=== PATIENT | male | born 1955 | race African-American/Black ===

== ENCOUNTER 2018-03-22 16:21 | Observation (INO) | payer MEDICAID ==
--- OUTSIDE RECORDS SUMMARY | 2018-03-22 16:23 | XMS REPORT ---
:1955 Author Organization eClinicalWorks Care Team Providers Name Role Phone Rebolledo, Sharmaine Provider Role Unavailable Allergies, Adverse Reactions, Alerts Substance Reaction Event Type N.K.D.A. Info Not Available Non Drug Allergy Problems Problem Type Condition Code Onset Dates Condition Status Assessment Other chronic pain G89.29 Active Assessment Chronic obstructive bronchitis J44.9 Active without exacerbation Assessment Low back pain M54.5 Active Problem Chronic obstructive bronchitis J44.9 Active without exacerbation Problem Essential hypertension I10 Active Problem Prostate ca C61 Active Assessment Essential hypertension I10 Active Problem Low back pain M54.5 Active Problem Other chronic pain G89.29 Active Medications Medication Code Code Instructions Start End Status Dosage System Date Date Gabapentin [facility] [id number] 300 MG Orally Active 1 capsule daily every 8 hours Symbicort [facility] [id number] 160-4.5 MCG/ACT Active 2 puffs Inhalation Twice a day Combivent [facility] [id number] 20-100 MCG/ACT Active 1 puff Respimat Inhalation Four times a day Zestoretic [facility] [id number] 12.5-10 MG Active 1 tablet Orally Once a day Results No Known Results Summary Purpose eClinicalWorks Submission
--- OUTSIDE RECORDS SUMMARY | 2018-03-22 16:23 | XMS REPORT ---
:1955 Author Organization [employer] Care Team Providers Name Role Phone Rebolledo, Na Provider Role Unavailable Allergies No Known Allergies Problems Problem Type Condition Code Onset Dates Condition Status Problem Chronic obstructive bronchitis J44.9 Active without exacerbation Problem Essential hypertension I10 Active Problem Prostate ca C61 Active Problem Low back pain M54.5 Active Problem Other chronic pain G89.29 Active Medications No Known Medications Results No Known Results Summary Purpose eClinicalWorks Submission
[2018-03-22] MEDS ORDERED: ASPIRIN 81 MG CHEWABLE TABLET ONE (17:06)
[2018-03-22] MEDS ORDERED: ONDANSETRON 4 MG/2 ML VIAL ONE (17:07)
[2018-03-22] MEDS ORDERED: MORPHINE 4 MG/ML SYR ONE (17:07)
[2018-03-22] MEDS ORDERED: FAMOTIDINE 20 MG/2 ML VIAL IV ONE (17:07)
[2018-03-22] MEDS ORDERED: METOPROLOL TAR 50 MG TAB ONE (17:07)
[2018-03-22 17:12] LABS: Absolute Lymphocytes (CBC) 1.8 K/uL (0.7-4.9); Absolute Monocytes 0.8 K/uL (0.1-1.3); Absolute Neutrophil 2.7 K/uL (1.8-8.0); Basophils % 0.7 % (0-1.3); Eosinophils % 1.5 % (0-4.4); Hematocrit 35.9 % (39.6-49.0); Lymphocytes % 33.7 % (15.3-44.8); MCH 28.5 pg (27.0-35.0); MCV 84.3 fL (80-100); MPV 9.4 fL (7.6-11.3); Monocytes % 14.1 % (3.3-12.3); RBC Red Blood Cell Count 4.26 M/uL (4.33-5.43)
[2018-03-22 17:15] LABS: Protime INR 0.99
--- NOTE | 2018-03-22 17:15 | RAD REPORT ---
EXAM DESCRIPTION: RAD - Chest Single View - 03/22/2018 5:09 pm CLINICAL HISTORY: CHEST PAIN Chest pain. COMPARISON: Chest Pa And Lat (2 Views) dated 03/08/2017; Chest Single View dated 01/25/2017; Chest Pa And Lat (2 Views) dated 09/25/2016; CHEST SINGLE VIEW dated 03/17/2015 FINDINGS: Portable technique limits examination quality. Mild interstitial pulmonary edema seen. The heart is upper limit normal size. No displaced fractures. IMPRESSION: Mild CHF/ volume overload pattern.
[2018-03-22 17:28] LABS: ALT/SGPT 19 U/L (12-78); AST/SGOT 29 U/L (15-37); Albumin 3.6 g/dL (3.4-5.0); Alkaline Phosphatase 85 U/L (45-117); BUN Blood Urea Nitrogen 28 mg/dL (7-18); Bicarbonate 26 mmol/L (21-32); Bilirubin Direct < 0.1 mg/dL (0-0.2); Bilirubin Total 0.2 mg/dL (0.2-1.0); CKMB Creatine Kinase MB 7.3 ng/mL (0.3-3.6); Creatine Phosphokinase 402 U/L (39-308); Glucose Level 117 mg/dL (74-106); Magnesium 2.1 mg/dL (1.8-2.4); NT PRO-BNP 240 pg/mL (<125); Protein, Total 7.7 g/dL (6.4-8.2); Sodium Level 138 mmol/L (136-145); Troponin (Emerg Dept Use Only) 0.04 ng/mL (0.0-0.045)
--- NOTE | 2018-03-22 17:49 | EDPHYS ---
Physician Documentation [facility] Name: Guido Allan Age: 62 yrs Sex: Male : 1955 Arrival Date: 03/22/2018 Time: 16:22 Bed 27 Private MD: Sharmaine Rebolledo ED Physician Kendrick Mckeon HPI: 03/22 16:57 This 62 yrs old Black Male presents to ER via Ambulatory with complaints of Chest Pain. [facility] 16:57 The patient or guardian reports chest pain that is located primarily in the substernal sinan area, anterior chest wall, left. Onset: 3 day(s) ago. The pain radiates to the left arm. Associated signs and symptoms: The patient has no apparent associated signs or symptoms. The chest pain is described as a heaviness, causing indigestion, a pressure. Modifying factors: The symptoms are alleviated by nothing. the symptoms are aggravated by nothing. Severity of pain: At its worst the pain was mild in the emergency department the pain is unchanged. The patient has not experienced similar symptoms in the past. Historical: - Allergies: 16:26 NKDA; hj - Home Meds: 16:26 lisinopril 20 mg Oral tab 1 tab once daily [Active]; Hormone Injection every 4 months hj for Prostate Cancer [Active]; inhaler as needed [Active]; - PMHx: 16:26 Arthritis; COPD; Hyperlipidemia; Hypertension; Prostate Cancer; hj - PSHx: 16:26 None; hj - Immunization history:: Adult Immunizations up to date. - Social history:: Smoking status: Patient uses tobacco products, smokes one pack cigarettes per day. every 3 days, Patient/guardian denies using alcohol. - Ebola Screening: : Patient negative for fever greater than or equal to 101.5 degrees Fahrenheit, and additional compatible Ebola Virus Disease symptoms Patient denies exposure to infectious person Patient denies travel to an Ebola-affected area in the 21 days before illness onset. - Family history:: not pertinent. ROS: 16:57 Constitutional: Negative for fever, chills, and weight loss, Eyes: Negative for injury, sinan pain, redness, and discharge, ENT: Negative for injury, pain, and discharge, Neck: Negative for injury, pain, and swelling, Respiratory: Negative for shortness of breath, cough, wheezing, and pleuritic chest pain, Abdomen/GI: Negative for abdominal pain, nausea, vomiting, diarrhea, and constipation, Back: Negative for injury and pain, : Negative for injury, bleeding, discharge, and swelling, MS/Extremity: Negative for injury and deformity, Skin: Negative for injury, rash, and discoloration, Neuro: Negative for headache, weakness, numbness, tingling, and seizure, Psych: Negative for depression, anxiety, suicide ideation, homicidal ideation, and hallucinations, Allergy/Immunology: Negative for hives, rash, and allergies, Endocrine: Negative for neck swelling, polydipsia, polyuria, polyphagia, and marked weight changes, Hematologic/Lymphatic: Negative for swollen nodes, abnormal bleeding, and unusual bruising. 16:57 Cardiovascular: Positive for chest pain, of the chest. Exam: 16:57 Constitutional: This is a well developed, well nourished patient who is awake, alert, sinan and in no acute distress. Head/Face: Normocephalic, atraumatic. Eyes: Pupils equal round and reactive to light, extra-ocular motions intact. Lids and lashes normal. Conjunctiva and sclera are non-icteric and not injected. Cornea within normal limits. Periorbital areas with no swelling, redness, or edema. ENT: Nares patent. No nasal discharge, no septal abnormalities noted. Tympanic membranes are normal and external auditory canals are clear. Oropharynx with no redness, swelling, or masses, exudates, or evidence of obstruction, uvula midline. Mucous membranes moist. Neck: Trachea midline, no thyromegaly or masses palpated, and no cervical lymphadenopathy. Supple, full range of motion without nuchal rigidity, or vertebral point tenderness. No Meningismus. Chest/axilla: Normal chest wall appearance and motion. Nontender with no deformity. No lesions are appreciated. Cardiovascular: Regular rate and rhythm with a normal S1 and S2. No gallops, murmurs, or rubs. Normal PMI, no JVD. No pulse deficits. Respiratory: Lungs have equal breath sounds bilaterally, clear to auscultation and percussion. No rales, rhonchi or wheezes noted. No increased work of breathing, no retractions or nasal flaring. Abdomen/GI: Soft, non-tender, with normal bowel sounds. No distension or tympany. No guarding or rebound. No evidence of tenderness throughout. Back: No spinal tenderness. No costovertebral tenderness. Full range of motion. Male : Normal genitalia with no discharge or lesions. Skin: Warm, dry with normal turgor. Normal color with no rashes, no lesions, and no evidence of cellulitis. MS/ Extremity: Pulses equal, no cyanosis. Neurovascular intact. Full, normal range of motion. Neuro: Awake and alert, GCS 15, oriented to person, place, time, and situation. Cranial nerves II-XII grossly intact. Motor strength 5/5 in all extremities. Sensory grossly intact. Cerebellar exam normal. Normal gait. Psych: Awake, alert, with orientation to person, place and time. Behavior, mood, and affect are within normal limits. Vital Signs: 16:29 BP 149 / 68; Pulse 78; Resp 18; Temp 97.0(TE); Pulse Ox 100% on R/A; Weight 112.04 kg; hj Height 6 ft. 0 in. (182.88 cm); Pain 8/10; 17:15 BP 145 / 75; Pulse 72; Resp 18; Pulse Ox 99% on 2 lpm NC; tl3 18:58 BP 137 / 78; Pulse 74; Resp 18; Pulse Ox 98% on 2 lpm NC; tl3 20:19 BP 103 / 65; Pulse 62; Resp 16; Pulse Ox 99% ; tl3 16:29 Body Mass Index 33.50 (112.04 kg, 182.88 cm) MDM: 16:43 Patient medically screened. [facility] 16:59 Data reviewed: vital signs, nurses notes, lab test result(s), EKG, radiologic studies, sinan plain films. 03/22 16:42 Order name: Basic Metabolic Panel; Complete Time: 17:45 [facility] 03/22 16:42 Order name: CBC with Diff; Complete Time: 17:45 [facility] 03/22 16:42 Order name: Ckmb; Complete Time: 17:45 [facility] 03/22 16:42 Order name: CPK; Complete Time: 17:45 [facility] 03/22 16:42 Order name: LFT's; Complete Time: 17:45 [facility] 03/22 16:42 Order name: Magnesium; Complete Time: 17:45 [facility] 03/22 16:42 Order name: NT PRO-BNP; Complete Time: 17:45 [facility] 03/22 16:42 Order name: PT-INR; Complete Time: 17:45 [facility] 03/22 16:42 Order name: Ptt, Activated; Complete Time: 17:45 [facility] 03/22 16:42 Order name: Troponin (emerg Dept Use Only); Complete Time: 17:45 [facility] 03/22 16:56 Order name: D-Dimer; Complete Time: 17:45 [facility] 03/22 18:27 Order name: CBC with Automated Diff [facility] 03/22 18:27 Order name: CBC with Automated Diff [facility] 03/22 18:27 Order name: Comprehensive Metabolic Panel [facility] 03/22 16:31 Order name: EKG; Complete Time: 16:32 03/22 16:42 Order name: XRAY Chest (1 view); Complete Time: 17:45 [facility] 03/22 17:49 Order name: CT Chest For PE Angio; Complete Time: 18:28 [facility] 03/22 17:54 Order name: Echo with Doppler [facility] 03/22 18:27 Order name: Comprehensive Metabolic Panel [facility] 03/22 18:27 Order name: Troponin I [facility] 03/22 18:27 Order name: Troponin I [facility] 03/22 18:27 Order name: Troponin I [facility] 03/22 18:27 Order name: Urine Dipstick--Ancillary (enter results) 03/22 16:31 Order name: EKG - Nurse/Tech; Complete Time: 16:31 03/22 16:42 Order name: Cardiac monitoring; Complete Time: 17:13 [facility] 03/22 16:42 Order name: IV Saline Lock; Complete Time: 17:13 [facility] 03/22 16:42 Order name: Labs collected and sent; Complete Time: 17:13 [facility] 03/22 16:42 Order name: O2 Per Protocol; Complete Time: 17:13 [facility] 03/22 16:42 Order name: O2 Sat Monitoring; Complete Time: 17:13 [facility] 03/22 16:42 Order name: Urine Dipstick-Ancillary (obtain specimen); Complete Time: 17:13 [facility] 03/22 17:54 Order name: CONS Physician Consult [facility] 03/22 18:27 Order name: Heart Healthy EDIN Administered Medications: 17:13 Drug: Aspirin Chewable Tablet 324 mg Route: PO; tl3 19:09 Follow up: Response: No adverse reaction tl3 17:14 Drug: morphine 4 mg Route: IVP; Infused Over: 3 mins; Site: right wrist; tl3 19:08 Follow up: Response: No adverse reaction; Pain is decreased tl3 17:14 Drug: Zofran 4 mg Route: IVP; Infused Over: 2 mins; Site: right wrist; tl3 19:08 Follow up: Response: No adverse reaction tl3 17:15 Drug: Lopressor (metoprolol TARTRATE) 50 mg Route: PO; tl3 19:08 Follow up: Response: Blood pressure is lowered tl3 17:15 Drug: Pepcid 20 mg Route: IVP; Site: right wrist; tl3 19:08 Follow up: Response: No adverse reaction tl3 19:12 Drug: Lasix 20 mg Route: IVP; Infused Over: 2 mins; Site: right wrist; tl3 21:42 Follow up: Response: No adverse reaction tl3 21:21 Drug: Lovenox 1 mg/kg Route: Sub-Q; Site: abdomen; tl3 Disposition: 03/22/18 17:48 Hospitalization ordered by Herman Mast for Observation. Preliminary diagnosis are Chest pain, unspecified, Dyspnea, Chronic obstructive pulmonary disease, unspecified, Essential (primary) hypertension. - Bed requested for Telemetry/MedSurg (observation). - Status is Observation. tl3 - Condition is Fair. - Problem is new. - Symptoms have improved. UTI on Admission? No Signatures: Dispatcher [employer] EDKendrick Spencer MD MD cha Solis, Maria ms LugoPranay, RN RN Juli Ozuna RN RN tl3 Corrections: (The following items were deleted from the chart) 20:59 17:48 Hospitalization Ordered by Herman Mast MD for Observation. Preliminary diagnosis ms is Chest pain, unspecified; Dyspnea; Chronic obstructive pulmonary disease, unspecified; Essential (primary) hypertension. Bed requested for Telemetry/MedSurg (observation). Status is Observation. Condition is Fair. Problem is new. Symptoms have improved. UTI on Admission? No. sinan 21:43 20:59 03/22/2018 17:48 Hospitalization Ordered by Herman Mast MD for Observation. tl3 Preliminary diagnosis is Chest pain, unspecified; Dyspnea; Chronic obstructive pulmonary disease, unspecified; Essential (primary) hypertension. Bed requested for Telemetry/MedSurg (observation). Status is Observation. Condition is Fair. Problem is new. Symptoms have improved. UTI on Admission? No. ms
--- NOTE | 2018-03-22 17:49 | ER ---
Nurse's Notes [facility] Name: Guido Allan Age: 62 yrs Sex: Male : 1955 Arrival Date: 03/22/2018 Time: 16:22 Bed 27 Private MD: Sharmaine Rebolledo Diagnosis: Chest pain, unspecified;Dyspnea;Chronic obstructive pulmonary disease, unspecified;Essential (primary) hypertension Presentation: 03/22 16:24 Presenting complaint: Patient states: about 3 days ago, i started having chest pain and hj the pain moves to the arms and my head hurts; reports SOB; reports nausea; current pain level is 7/10;. Transition of care: patient was not received from another setting of care. Onset of symptoms was March 22, 2018. Risk Assessment: Do you want to hurt yourself or someone else? Patient reports no desire to harm self or others. Initial Sepsis Screen: Does the patient meet any 2 criteria? No. Patient's initial sepsis screen is negative. Does the patient have a suspected source of infection? No. Patient's initial sepsis screen is negative. Care prior to arrival: None. 16:24 Method Of Arrival: Ambulatory 16:24 Acuity: ALANA 3 hj Triage Assessment: 16:27 General: Appears in no apparent distress. uncomfortable, Behavior is calm, cooperative, hj appropriate for age. Pain: Complains of pain in chest Pain radiates to left arm Pain currently is 8 out of 10 on a pain scale. Cardiovascular: Capillary refill < 3 seconds Patient's skin is warm and dry. Historical: - Allergies: 16:26 NKDA; hj - Home Meds: 16:26 lisinopril 20 mg Oral tab 1 tab once daily [Active]; Hormone Injection every 4 months hj for Prostate Cancer [Active]; inhaler as needed [Active]; - PMHx: 16:26 Arthritis; COPD; Hyperlipidemia; Hypertension; Prostate Cancer; hj - PSHx: 16:26 None; hj - Immunization history:: Adult Immunizations up to date. - Social history:: Smoking status: Patient uses tobacco products, smokes one pack cigarettes per day. every 3 days, Patient/guardian denies using alcohol. - Ebola Screening: : Patient negative for fever greater than or equal to 101.5 degrees Fahrenheit, and additional compatible Ebola Virus Disease symptoms Patient denies exposure to infectious person Patient denies travel to an Ebola-affected area in the 21 days before illness onset. - Family history:: not pertinent. Screenin:28 Abuse screen: Denies threats or abuse. Denies injuries from another. Nutritional hj screening: No deficits noted. Tuberculosis screening: No symptoms or risk factors identified. Fall Risk None identified. Assessment: 16:29 Pain: Pain began 2-3 days ago. hj 16:51 General: Appears distressed, uncomfortable, well groomed, well developed, well tl3 nourished, Behavior is cooperative, appropriate for age, anxious. Pain: Complains of pain in left arm and chest. Neuro: Level of Consciousness is awake, alert, obeys commands, Oriented to person, place, time, situation, Appropriate for age. Cardiovascular: Reports chest pain, shortness of breath, headache Patient's skin is warm and dry. Respiratory: Airway is patent Respiratory effort is even, labored, Respiratory pattern is regular, symmetrical, Breath sounds are clear bilaterally. GI: No signs and/or symptoms were reported involving the gastrointestinal system. : No signs and/or symptoms were reported regarding the genitourinary system. EENT: No signs and/or symptoms were reported regarding the EENT system. Derm: No signs and/or symptoms reported regarding the dermatologic system. 16:51 Cardiovascular: Reports since pain started three days ago, resting made it better tl3 initally, but then it didn't matter whether he was still or moving there was pain. 18:16 Reassessment: No changes from previously documented assessment. Patient and/or family tl3 updated on plan of care and expected duration. Pain level reassessed. Patient is alert, oriented x 3, equal unlabored respirations, skin warm/dry/pink. 18:58 Reassessment: Patient appears in no apparent distress at this time. No changes from tl3 previously documented assessment. Patient and/or family updated on plan of care and expected duration. Pain level reassessed. Patient is alert, oriented x 3, equal unlabored respirations, skin warm/dry/pink. 20:19 Reassessment: Patient appears in no apparent distress at this time. No changes from tl3 previously documented assessment. Patient and/or family updated on plan of care and expected duration. Pain level reassessed. Patient is alert, oriented x 3, equal unlabored respirations, skin warm/dry/pink. Vital Signs: 16:29 BP 149 / 68; Pulse 78; Resp 18; Temp 97.0(TE); Pulse Ox 100% on R/A; Weight 112.04 kg; hj Height 6 ft. 0 in. (182.88 cm); Pain 8/10; 17:15 BP 145 / 75; Pulse 72; Resp 18; Pulse Ox 99% on 2 lpm NC; tl3 18:58 BP 137 / 78; Pulse 74; Resp 18; Pulse Ox 98% on 2 lpm NC; tl3 20:19 BP 103 / 65; Pulse 62; Resp 16; Pulse Ox 99% ; tl3 16:29 Body Mass Index 33.50 (112.04 kg, 182.88 cm) hj ED Course: 16:22 Patient arrived in ED. rg4 16:23 Sharmaine Rebolledo MD is Private Physician. rg4 16:25 Triage completed. hj 16:29 Arm band placed on right wrist. hj 16:29 Patient has correct armband on for positive identification. Placed in gown. Bed in low hj position. Call light in reach. Side rails up X 1. 16:29 ekg monitor tech on. Pulse ox on. NIBP on. hj 16:29 Patient maintains SpO2 saturation greater than 95% on room air. hj 16:30 Inserted saline lock: 20 gauge in right wrist, using aseptic technique. Blood collected.tl3 16:31 EKG done, by technical customer support specialist. reviewed by Kendrick Mckeon MD. sm3 16:33 Kendrick Mckeon MD is Attending Physician. sinan 16:51 Juli Rodriguez, CECILIA is Primary Nurse. tl3 17:08 X-ray completed. Portable x-ray completed in exam room. Patient tolerated procedure az well. 17:09 XRAY Chest (1 view) In Process Unspecified. EDMS 17:47 Herman Mast MD is Hospitalizing Provider. sinan 18:[address] vr 18:05 CT completed. Patient tolerated procedure well. Patient moved back from CT. vr 18:05 CT Chest For PE Angio In Process Unspecified. EDMS 20:27 Door closed. Pillow given. Diet tray given. tl3 20:27 No provider procedures requiring assistance completed. tl3 Administered Medications: 17:13 Drug: Aspirin Chewable Tablet 324 mg Route: PO; tl3 19:09 Follow up: Response: No adverse reaction tl3 17:14 Drug: morphine 4 mg Route: IVP; Infused Over: 3 mins; Site: right wrist; tl3 19:08 Follow up: Response: No adverse reaction; Pain is decreased tl3 17:14 Drug: Zofran 4 mg Route: IVP; Infused Over: 2 mins; Site: right wrist; tl3 19:08 Follow up: Response: No adverse reaction tl3 17:15 Drug: Lopressor (metoprolol TARTRATE) 50 mg Route: PO; tl3 19:08 Follow up: Response: Blood pressure is lowered tl3 17:15 Drug: Pepcid 20 mg Route: IVP; Site: right wrist; tl3 19:08 Follow up: Response: No adverse reaction tl3 19:12 Drug: Lasix 20 mg Route: IVP; Infused Over: 2 mins; Site: right wrist; tl3 21:42 Follow up: Response: No adverse reaction tl3 21:21 Drug: Lovenox 1 mg/kg Route: Sub-Q; Site: abdomen; tl3 Output: 20:27 Urine: 1200ml (Voided); Total: 1200ml. tl3 Outcome: 17:48 Decision to Hospitalize by Provider. [facility] 21:43 Patient left the ED. tl3 Signatures: Dispatcher [employer] EDMS Kendrick Mckeon MD MD cha Davis, Victoria vr Joaquin, Henry, RN Beth Painter 4 Juli Rodriguez RN RN tl3 Kerline Rea 3 Taylor Leo ga Corrections: (The following items were deleted from the chart) 16:31 16:29 Pulse 78bpm; Resp 18bpm; Pulse Ox 100% RA; Temp 97.0F Temporal; 112.04 kg; Height hj 6 ft. 0 in.; BMI: 33.5; Pain 8/10; hj
--- NOTE | 2018-03-22 18:17 | RAD REPORT ---
EXAM DESCRIPTION: CT - Chest For Pe Angio - 03/22/2018 6:05 pm CLINICAL HISTORY: Chest pain and shortness of breath COMPARISON: None. TECHNIQUE: Dynamically enhanced axial 3 mm thick images of the chest were obtained during administra tion of <100> mL Isovue 370 IV contrast. Coronal and oblique reconstruction images were generated and reviewed. Exam utilizes a protocol for optimal evaluation of pulmonary arterial tree. Maximum intensity projections 3D imaging was utilized All CT scans are performed using dose optimization technique as appropriate and may include automated exposure control or mA/KV adjustment according to patient size. FINDINGS: A pulmonary embolus is not seen. A thoracic aortic aneurysm is not noted. A pleural effusion is not seen. A pericardial effusion is not seen. A lung consolidation is not present. IMPRESSION: Negative for a pulmonary embolism.
[2018-03-22] MEDS ORDERED: ONDANSETRON 4 MG/2 ML VIAL IV PRN (18:23)
[2018-03-22] MEDS ORDERED: ACETAMINOPHEN 500 MG TAB PO PRN (18:23)
[2018-03-22] MEDS: ENOXAPARIN 40 MG/0.4 ML SQ SCH (19:00)
[2018-03-22] MEDS ORDERED: ASPIRIN EC 81 MG TAB PO SCH (19:00)
[2018-03-22] MEDS ORDERED: FUROSEMIDE 20 MG/ 2ML VIAL ONE (19:16)
[2018-03-22 19:32] LABS: Urine Blood NEGATIVE (NEG); Urine Glucose NEGATIVE (NEG); Urine Protein NEGATIVE (NEG); Urine Specific Gravity 1.025 (1.005-1.030)
[2018-03-22] MEDS ORDERED: ENOXAPARIN 100 MG/ML SYR SQ ONE (21:29)
[2018-03-22] MEDS: METOPROLOL TAR 50 MG TAB PO SCH (22:24)
[2018-03-22 22:49] VITALS: BMI 33.5
[2018-03-23 00:14] VITALS: O2SAT 98
[2018-03-23 03:09] LABS: Absolute Lymphocytes (CBC) 1.8 K/uL (0.7-4.9); Absolute Monocytes 0.7 K/uL (0.1-1.3); Absolute Neutrophil 1.6 K/uL (1.8-8.0); Basophils % 0.9 % (0-1.3); Eosinophils % 2.3 % (0-4.4); Hematocrit 35.5 % (39.6-49.0); Lymphocytes % 42.9 % (15.3-44.8); MCH 28.7 pg (27.0-35.0); MCV 83.4 fL (80-100); MPV 9.3 fL (7.6-11.3); Monocytes % 16.7 % (3.3-12.3); RBC Red Blood Cell Count 4.26 M/uL (4.33-5.43)
[2018-03-23 03:34] LABS: Albumin 3.6 g/dL (3.4-5.0); Bilirubin Total 0.2 mg/dL (0.2-1.0); Protein, Total 7.5 g/dL (6.4-8.2)
[2018-03-23 04:50] LABS: Blood Morphology Comment NOT SEEN (NOT SEEN); Platelet Estimate ADEQ
--- NOTE | 2018-03-23 06:18 | P.HP ---
Certification for Inpatient Patient admitted to: Observation With expected LOS: <2 Midnights Patient will require the following post-hospital care: None Practitioner: I am a practitioner with admitting privileges, knowledge of patient current condition, hospital course, and medical plan of care. Services: Services provided to patient in accordance with Admission requirements found in Title 42 Section 412.3 of the Code of Federal Regulations Patient History Date of Service: 03/22/18 Reason for admission: Chest pain to the anterior chest wall History of Present Illness: Patient is a 62-year-old gentleman who came into the hospital with chest discomfort. Pain was in the anterior chest wall which started about 3 days ago. The chest pain has been waxing and waning for the last few days. However yesterday the chest pain became more severe. The pain radiated down his left arm. He had some dyspnea and described the symptoms as heaviness or pressure. Patient has numerous risk factors including having a history of hypertension and dyslipidemia and he is also smoker. At this time, will rule about for acute coronary syndrome. Will do serial troponins and EKGs. Will also do an echocardiogram and possible stress test in the a.m.. Patient's chest pain has resolved at this time. Allergies No Known Drug Allergies Allergy (Verified 03/02/16 08:11) Unknown Home Medications: Hydrocodone 10/APAP 325 [Boyd 10/325] 1 tab PO Q6H PRN 02/24/16 Atorvastatin Calcium [Lipitor] 80 mg PO DAILY 03/02/16 Omeprazole [Prilosec] 40 mg PO DAILY 03/02/16 Albuterol Sulfate [Proair Hfa] 1 puff PO Q6H 03/22/18 Gabapentin [Neurontin*] 300 mg PO DAILY 03/22/18 Ipratropium/Albuterol Sulfate [Combivent Respimat 20-100 Mcg] 20 - 100 % PO Q6H PRN 03/22/18 Lisinopril/Hydrochlorothiazide [Lisinopril-Hctz 10-12.5 mg Tab] 1 tab PO DAILY 03/22/18 Mirtazapine [Remeron*] 15 mg PO DAILY 03/22/18 - Past Medical/Surgical History Has patient received pneumonia vaccine in the past: No Diabetic: No -: COPD -: Hyperlipidemia -: HTN -: Prostate CA -: Arthritis -: Chronic back pain -: Smoker -: Prostate sx - 12/10/2009 - Family History Father Family History: Reviewed- Non-Contributory - Social History Smoking Status: Current every day smoker Alcohol use: No CD- Drugs: No Caffeine use: Yes Place of Residence: Home Review of Systems 10-point ROS is otherwise unremarkable Physical Examination - Vital Signs Temperature: 97.2 F Blood Pressure: 120/69 Pulse: 56 Respirations: 17 Pulse Ox (%): 100 - Physical Exam General: Alert, In no apparent distress, Oriented x3 HEENT: Atraumatic, PERRLA, Mucous membr. moist/pink, EOMI, Sclerae nonicteric Neck: Supple, 2+ carotid pulse no bruit, No LAD, Without JVD or thyroid abnormality Respiratory: Clear to auscultation bilaterally, Normal air movement Cardiovascular: Regular rate/rhythm, Normal S1 S2, No murmurs Gastrointestinal: Normal bowel sounds, Soft and benign, Non-distended, No tenderness Musculoskeletal: No clubbing, No swelling, No tenderness Integumentary: No rashes Neurological: Normal gait, Normal speech, Normal strength at 5/5 x4 extr, Normal tone, Sensation intact, Cranial nerves 3-12 intact, Normal affect Lymphatics: No axilla or inguinal lymphadenopathy - Studies Laboratory Data (last 24 hrs) 03/22/18 16:52: PT 11.7, INR 0.99, APTT 31.4 03/22/18 16:52: WBC 5.3 D, Hgb 12.1 L, Hct 35.9 L, Plt Count 224 03/22/18 16:52: Sodium 138, Potassium 4.0, BUN 28 H, Creatinine 1.20, Glucose 117 H, Magnesium 2.1, Total Bilirubin 0.2, AST 29, ALT 19, Alkaline Phosphatase 85 Assessment & Plan - Plan Assessment: 1. Chest pain rule out acute coronary syndrome 2. History of hypertension 3. History of dyslipidemia 4. History of prostate cancer 5. History of tobacco abuse 6. History of COPD Plan: 1. Serial troponins and EKG 2. Cardiology consultation 3. Echocardiogram and stress test in the morning 4. Anti-platelet therapy, anti coagulation, beta-vicki, statin, and O2 as needed 5. IV morphine for pain 6. C counseled regarding tobacco cessation; patient needs to refrain from tobacco use with his numerous medical issues 7. Lipid profile in the morning 8. Inhaler therapy with outpatient pulmonary function testing 9. GI and DVT prophylaxis - Advance Directives Does patient have a Living Will: No Does patient have a Durable POA for Healthcare: No - Code Status/Comfort Care Code Status Assessed: Yes Code Status: Full Code Critical Care: No Time Spent Managing PTS Care (In Minutes): 50
[2018-03-23] MEDS: FUROSEMIDE 40 MG/4 ML VIAL IV SCH ×2 (08:06→17:00)
[2018-03-23] MEDS: METOPROLOL TAR 50 MG TAB PO SCH (08:07)
[2018-03-23] MEDS: ENOXAPARIN 40 MG/0.4 ML SQ SCH (08:08)
[2018-03-23] MEDS: HYDROCODONE/APAP 10/325 TAB PO PRN ×2 (08:08→15:50)
[2018-03-23] MEDS ORDERED: REGADENOSON 0.4 MG/5 ML SYR IV ONE (08:20)
[2018-03-23] MEDS ORDERED: ASPIRIN EC 81 MG TAB PO SCH (09:00)
[2018-03-23] MEDS ORDERED: PANTOPRAZOLE 40MG TABLET PO SCH (09:00)
[2018-03-23] MEDS ORDERED: LISINOPRIL 10 MG TAB PO SCH (09:00)
[2018-03-23] MEDS ORDERED: GABAPENTIN 300 MG CAP PO SCH (09:00)
[2018-03-23] MEDS ORDERED: ATORVASTATIN 80 MG TAB PO SCH (09:00)
[2018-03-23] MEDS ORDERED: MIRTAZAPINE 15 MG TAB PO SCH (09:00)
--- NOTE | 2018-03-23 12:12 | EKG ---
Test Date: 2018-03-22 Test Time: 16:27:52 Continuous Miner: SHERICE MEASUREMENT RESULTS: Intervals: Rate: 82 MN: 164 QRSD: 82 QT: 382 QTc: 446 Honaker: P: 42 MN: 164 QRS: -5 T: 104 INTERPRETIVE STATEMENTS: Normal sinus rhythm Voltage criteria for left ventricular hypertrophy T wave abnormality, consider lateral ischemia Abnormal ECG Compared to ECG 03/21/2018 12:02:29 Prolonged QT interval no longer present T-wave abnormality still present Possible ischemia still present Electronically Signed On 03-23-18 12:08:58 CDT by Popeye Jensen
--- NOTE | 2018-03-23 12:29 | TREADPHA ---
DX: CHEST PAIN Date of Study: 03/23/18 Ht: 6 0 Wt: 247 lb 0 oz Consulting Physician: MICK MEDICATIONS: TYLENOL, NORCO, ASPIRIN, LIPITOR, LOVENOX, LASIX, NUERONTIN, PRINIVIL, LOPRESSOR, REMOERON, ZOFRAN, PROTONIX TAB. HISTORY: 62 YEAR OLD MALE WITH COMPLAINTS OF CHEST PAIN. MEDICAL HISTORY OF CHRONIC OBSTRUCTIVE PULMONARY DISEASE, HYPERLIPIDEMIA, HYPERTENSION, PORSTAT. PHYSICIAL EXAMINATION: RESTING B.P.: 123/58 RESTING H.R.: 53 RESTING EKG: SINUS BRADYCARDIA, LEFT VENTRICULAR HYPERTROPHY. PROTOCOL: LEXISCAN EXERCISE TIME: 3:30 B.P. AT PEAK STRESS: 117/73 IMPRESSION: LEXISCAN INJECTED, CARDIOLITE INJECTED PER PROTOCOL. SEE NUCLEAR MEDICINE REPORT. NO SUPRA VENTRICULAR TACHYCARDIA. NO VENTRICULAR TACHYCARDIA. PREMATURE VENTRICULAR COMPLEXES. DENIED CHEST PAIN.
--- NOTE | 2018-03-23 13:41 | RAD REPORT ---
EXAM DESCRIPTION: NM - Rest Stress Cardiac Imaging - 03/23/2018 1:32 pm CLINICAL HISTORY: Chest pain COMPARISON: None. TECHNIQUE: The patient was administered 10.9 mCi of Tc 99m Sestamibi prior to resting SPECT imaging of the heart. The patient was then administered 30.8 mCi of Tc 99m Sestamibi following exercise or ph armacologic stress. Multiplanar SPECT images were reviewed. FINDINGS: The end diastolic volume is 168 ml, the end systolic volume is 111 ml, and the ejection fr action is 34 %. No stress-induced ischemic changes are identifiable. Moderate-sized fixed defect present base and mid portion of the inferior wall. No other area possible scarring or significant attenuation artifacts se en. IMPRESSION: No stress-induced ischemia. Moderate-sized fixed defect base and midportion inferior wall. This could be scarring or diaphragm at tenuation. End-diastolic volume is enlarged at 168 mL with a poor 34% ejection fraction.
[2018-03-23 18:19] VITALS: BP 116/59; TEMP 96.9
--- NOTE | 2018-03-24 01:45 | CON ---
Date of Consultation: 03/23/2018 The patient admitted on 03/22/[address] Mast's service. I saw him on 03/23/2018. Reason For Consultation: Congestive heart failure. History Of Present Illness: Mr. Allan is a 62-year-old black male who has a history of dyslipidemia , prostate cancer, COPD, gastroesophageal reflux disease, hypertension, and chronic pain. He came in with shortness of breath, atypical chest pain, hypertension. Chest x-ray showed CHF. EKG showed LV H. CPK was 402 with a BNP of 140. Troponin was negative. D-dimer was [address] angio gram. Allergies: NONE. Review of Systems: Negative. Social History: Negative. Family History: Positive for heart disease and hypertension. Medications: At home include Lipitor, lisinopril, Prilosec and Cascade. Physical Examination: Vital Signs: Stable. He was afebrile. He was already feeling better after diuresis. HEENT: Negative. Neck: Supple without any bruit, lymphadenopathy, JVD, or thyromegaly. Chest: Clear to auscultation and percussion. Cardiac Exam: Revealed a regular rhythm and rate with S4 gallops. No murmurs or rubs. Abdomen: Benign. Extremities: Revealed no clubbing, cyanosis, or edema. Diagnostic Data: As stated earlier. Impression And Plan: 1.Atypical chest pain. Lexiscan is pending. This may be secondary to left ventricular hypertrophy and congestive heart failure. 2.Possible acute diastolic congestive heart failure. Echocardiogram is pending. 3.Gastroesophageal reflux disease. 4.Hypertension, poorly controlled. 5.Dyslipidemia. 6.Chronic obstructive pulmonary disease. 7.History of prostate cancer. 8.Chronic pain, on Cascade. I agree with his present regimen. We may have to increase his lisinopril . Consider diuretic. Consider calcium channel vicki. We will see what his echo and Lexiscan show before making a formal decision. ANNE MARIE/BOBBY Voice ID: [id number] Report ID: [id number]
--- NOTE | 2018-03-24 08:50 | ECHO ---
HEIGHT: 6 ft 0 in WEIGHT: 247 lb 0 oz DATE OF STUDY: 03/23/[address]: Kendrick Mckeon MD 2-DIMENSIONAL: YES M.MODE: YES DOPPLER: YES COLOR FLOW: YES TDS: NO PORTABLE: NO DEFINITY: NO BUBBLE STUDY: NO DIAGNOSIS: DYSPNEA, CONGESTIVE, HYPERTENSION CARDIAC HISTORY: CATHERIZATION: NO SURGERY: NO PROSTHETIC VALVE: NO PACEMAKER: NO MEASUREMENTS (cm) DIASTOLIC (NORMALS) SYSTOLIC (NORMALS) IVSd 1.0 (0.6-1.2) LA Diam 4.0 (1.9-4.0) LVEF 61% LVIDd 4.6 (3.5-5.7) LVIDs 3.1 (2.0-3.5) %FS 33% LVPWd 1.4 (0.6-1.2) Ao Diam 3.7 (2.0-3.7) 2 DIMENSIONAL ASSESSMENT: RIGHT ATRIUM: NORMAL LEFT ATRIUM: NORMAL RIGHT VENTRICLE: NORMAL LEFT VENTRICLE: LEFT VENTRICULAR HYPERTROPHY TRICUSPID VALVE: NORMAL MITRAL VALVE: NORMAL PULMONIC VALVE: NORMAL AORTIC VALVE: NORMAL PERICARDIAL EFFUSION: NORMAL AORTIC ROOT: NORMAL LEFT VENTRICULAR WALL MOTION: DECREASED LEFT VENTRICULAR COMPLAINCE. DOPPLER/COLOR FLOW: NORMAL. COMMENTS: NORMAL LEFT VENTRICULAR COMPLIANCE. NORMAL EJECTION FRACTION. LEFT VENTRICULAR HYPERTROPHY. NO EFFUSION. TECHNOLOGIST: FLORIDA PIZANO
--- NOTE | 2018-03-24 15:39 | DS ---
Date of Discharge: 03/23/2018 Consultants: Dr. Jensen with Cardiology. Procedures: Cardiac stress test on 03/23/2018, negative for stress-induced ischemia. Admitting Diagnoses: 1.Chest pain, rule out acute coronary syndrome. 2.Essential hypertension. 3.Dyslipidemia. 4.History of prostate cancer. 5.History of nicotine dependence with cigarette smoking. 6.History of chronic obstructive pulmonary disease. Discharge Diagnoses: 1.Chest pain. Acute coronary syndrome ruled out. Stress test negative. 2.Acute congestive heart failure with depressed ejection fraction of 34%, systolic dysfunction. 3.Chronic obstructive pulmonary disease, chronic bronchitis. 4.Nicotine dependence with cigarette smoking, counseled. 5.History of prostate cancer, stable. 6.Dyslipidemia. Continue statin. 7.Essential hypertension, stable. Hospital Course: The patient is a 62-year-old male, comes into the hospital with chest pain starting about 3 days ago, waxing and waning. The patient does have risk factors including hypertension, dys lipidemia, and smoking. The patient was admitted to the hospital to rule out ACS. His initial tropo shirley was negative, however, did have a slight elevation at 0.06 and then went down to 0.05. The patie nt's BNP was 240. Chest x-ray showed some mild CHF, volume overload pattern. CT angio of the chest was done, which showed no PE, no aneurysm, no pleural effusion or pericardial effusion, no consolidat ion. The patient's symptoms improved. He did have a cardiac stress test and was seen by Dr. Jensen . Stress test was negative for any stress-induced ischemia. However, his ejection fraction was low at 34%. He did not have any changes on his EKG. The patient was then cleared for discharge from Car diology standpoint to follow up with Dr. Jensen in 2 weeks. The patient was instructed on a sodium restricted, 1500 mL diet. Followup: The patient to follow up with PCP in 2-3 days, Dr. Lange. Return to ER for worsening condi tion. Follow up with Dr. Jensen in 2 weeks. Activity: As tolerated. Medications: As per medication reconciliation list. The patient will be started on Lasix. Stop HCT Z. Beta vicki has been added. The patient will need outpatient echocardiogram and to follow close ly with Dr. Jensen. Physical Examination: General: Awake, alert, oriented, no acute distress CV: S1, S2. No murmurs. Respiratory: Moving air well bilaterally Gastrointestinal: Abdomen is soft, nontender, nondistended . Positive bowel sounds. Extremities: No clubbing, cyanosis, or edema. Neurologic: Nonfocal. SA/MODL Voice ID: [id number] Report ID: [id number]
== END 2018-03-23 17:44 | disposition home or self-care (01) ==
LOC: ER 16:21 → ERHOLD 17:50 → 4TH 21:28
PROVIDERS: ADMIT Family Medicine; ATTEND Family Medicine
DX: R07.89 Other chest pain (principal); I11.0 Hypertensive heart disease with heart failure; I50.21 Acute systolic (congestive) heart failure; J44.9 Chronic obstructive pulmonary disease, unspecified; G89.29 Other chronic pain; K21.9 Gastro-esophageal reflux disease without esophagitis; E78.5 Hyperlipidemia, unspecified; F17.210 Nicotine dependence, cigarettes, uncomplicated; R00.1 Bradycardia, unspecified; Z85.46 Personal history of malignant neoplasm of prostate
CPT/HCPCS: 36415; 71045; 71275; 78452; 80048; 80053; 80076; 81003; 82550; 82553; 83735; 83880; 84484; 85025; 85379; 85610; 85730; 93005; 93017; 93306; 96372; 96374; 96375; 99285; A9500; G0378; J1650; J1940; J2405; J2785; Q9967

== ENCOUNTER 2018-09-16 06:12 | Day surgery (SDC) | payer MEDICAID ==
[2018-09-14 17:02] LABS: Absolute Lymphocytes (CBC) 1.5 K/uL (0.7-4.9); Absolute Monocytes 0.6 K/uL (0.1-1.3); Absolute Neutrophil 1.8 K/uL (1.8-8.0); Basophils % 0.6 % (0-1.3); Eosinophils % 2.4 % (0-4.4); Hematocrit 35.7 % (39.6-49.0); Lymphocytes % 36.6 % (15.3-44.8); MPV 9.8 fL (7.6-11.3); Monocytes % 14.6 % (3.3-12.3); RBC Red Blood Cell Count 4.25 M/uL (4.33-5.43)
[2018-09-14 17:19] LABS: Potassium 3.8 mmol/L (3.5-5.1)
--- NOTE | 2018-09-14 19:09 | EKG ---
Test Date: 2018-09-14 Test Time: 16:08:24 Cleaning Porter: SHERRIE MEASUREMENT RESULTS: Intervals: Rate: 81 WY: 168 QRSD: 88 QT: 374 QTc: 434 Powersite: P: 61 WY: 168 QRS: -4 T: 120 INTERPRETIVE STATEMENTS: Normal sinus rhythm Biatrial enlargement LVH with secondary repolarization changes Abnormal ECG Compared to ECG 03/22/2018 16:27:52 no significant change from previous ECG Electronically Signed On 09-14-18 19:08:03 [employer]ATING [employer] ENGINEER by Zackery Nobles
--- OUTSIDE RECORDS SUMMARY | 2018-09-16 06:22 | XMS REPORT ---
:1955 Author Organization e[employer]Works Care Team Providers Name Role Phone Rebolledo, Na Provider Role Unavailable Allergies No Known Allergies Problems Problem Type Condition Code Onset Dates Condition Status Problem Essential hypertension I10 Active Problem Low back pain M54.5 Active Problem Personal history of prostate cancer Z85.46 Active Problem Primary insomnia F51.01 Active Problem Screening cholesterol level Z13.220 Active Problem Prostate ca C61 Active Problem Other chronic pain G89.29 Active Problem Chest pain, unspecified type R07.9 Active Problem Chronic obstructive bronchitis J44.9 Active without exacerbation Medications No Known Medications Results No Known Results Summary Purpose eClinicalWorks Submission
--- OUTSIDE RECORDS SUMMARY | 2018-09-16 06:22 | XMS REPORT ---
:1955 [facility] Team Providers Name Role Phone RebolledoSharmaine Provider Role Unavailable Allergies, Adverse Reactions, Alerts Substance Reaction Event Type N.K.D.A. Info Not Available Non Drug Allergy Problems Problem Type Condition Code Onset Dates Condition Status Problem Essential hypertension I10 Active Problem Low back pain M54.5 Active Problem Personal history of prostate cancer Z85.46 Active Assessment Cigarette nicotine dependence F17.210 Active without complication Problem Primary insomnia F51.01 Active Assessment Encounter for tobacco use cessation Z71.6 Active counseling Problem Screening cholesterol level Z13.220 Active Problem Prostate ca C61 Active Problem Other chronic pain G89.29 Active Problem Chest pain, unspecified type R07.9 Active Problem Chronic obstructive bronchitis J44.9 Active without exacerbation Assessment Personal history of prostate cancer Z85.46 Active Assessment Primary insomnia F51.01 Active Assessment Blood tests for routine general Z00.00 Active physical examination Assessment Screening for cardiovascular Z13.6 Active condition Assessment Low back pain M54.5 Active Assessment Chronic obstructive bronchitis J44.9 Active without exacerbation Assessment Screening cholesterol level Z13.220 Active Assessment Chest pain, unspecified type R07.9 Active Assessment Other chronic pain G89.29 Active Assessment Essential hypertension I10 Active Medications Medication Code Code Instructions Start End Status Dosage System Date Date Gabapentin [facility] 08192605413 300 MG Orally Active 1 capsule daily every 8 hours Mirtazapine [facility] 92610518446 15 MG Orally Sept 10, Active 1 tablet Once a day 2018 at bedtime Symbicort [facility] 43996202371 160-4.5 MCG/ACT Active 2 puffs Inhalation Twice a day Zestoretic [facility] [address]-66 12.5-10 MG Active 1 tablet Orally Once a day Combivent [facility] 08492485936 20-100 MCG/ACT Active 1 puff Respimat Inhalation Four times a day Results Name Result Date Reference Range Unit Abnormality Flag Hemoglobin A1C ----Hemoglobin A1c 6.2 76062794 4.2-6.3 % TSH Thyroid Stimulating Hormone ----Thyroid Stimulating 1.740 94645177 0.360-3.740 [iU]/L Hormone CBC with Automated Diff ----Basophils % 0.8 74505805 0-1.3 % ----Eosinophils % 1.8 47480297 0-4.4 % ----Absolute Lymphocytes 1.6 26597811 0.7-4.9 (CBC) ----Absolute Neutrophil 2.2 36421505 1.8-8.0 ----Red Cell Distribution 14.5 41547961 12.1-15.2 % Width ----Absolute Eosinophils 0.1 37298051 0-0.5 ----Platelets 226 58189893 152-406 ----Absolute Monocytes 0.6 56883825 0.1-1.3 ----MCHC 33.7 44131474 32.0-36.0 g/dL ----MCH 28.2 46118946 27.0-35.0 pg ----MCV 83.9 87409978 80-100 fL ----Neutrophils % 48.1 31498380 41.7-73.7 % ----MPV 9.6 87266783 7.6-11.3 fL ----Monocytes % 14.2 51620057 3.3-12.3 % H ----Lymphocytes % 35.1 01196235 15.3-44.8 % ----Absolute Basophils 0.0 18202301 0-0.5 ----White Blood Count 4.5 81196056 4.3-10.9 ----RBC Red Blood Cell Count 4.38 08720740 4.33-5.43 M/ul ----Hemoglobin 12.4 21179026 13.6-17.9 g/dL L ----Hematocrit 36.8 89973064 39.6-49.0 % L Comprehensive Metabolic Panel ----Creatinine 1.10 24544360 0.55-1.3 mg/dL ----BUN Blood Urea Nitrogen 22 51933216 7-18 mg/dL H ----AST/SGOT 24 27574313 15-37 U/L ----Glomerular Filtration 82 25091086 =/>90 mL L Rate ----Alkaline Phosphatase 82 20180321 45-117 U/L ----Bilirubin Total 0.2 74778178 0.2-1.0 mg/dL ----ALT/SGPT 19 20180321 12-78 U/L ----Albumin 3.9 65708247 3.4-5.0 g/dL ----Bicarbonate 26 26517248 21-32 mmol/L ----Globulin 4.3 88527092 2.3-3.5 g/dL H ----Glucose Level 110 47367449 74-106 mg/dL H ----Potassium 4.4 19160495 3.5-5.1 mmol/L ----Calcium Level 9.3 57720905 8.5-10.1 mg/dL ----Protein, Total 8.2 40033378 6.4-8.2 g/dL ----Chloride Level 108 97095344 98-107 mmol/L H ----Sodium Level 139 96542193 136-145 mmol/L ----Albumin/Globulin Ratio 0.9 47486271 1.1-1.8 L Summary Purpose eClinicalWorks Submission
--- OUTSIDE RECORDS SUMMARY | 2018-09-16 06:22 | XMS REPORT ---
[...] End Status Dosage System Date Date Gabapentin [facility] 03981837934 300 MG Orally Active 1 capsule daily every 8 hours Symbicort [facility] 16053668260 160-4.5 MCG/ACT Active 2 puffs Inhalation Twice a day Combivent [facility] 51029653167 20-100 MCG/ACT Active 1 puff Respimat Inhalation Four times a day Zestoretic [facility] [address]-64 12.5-10 MG Active 1 tablet Orally Once a day Results No Known Results Summary Purpose eClinicalWorks Submission
--- OUTSIDE RECORDS SUMMARY | 2018-09-16 06:22 | XMS REPORT ---
[...] obstructive bronchitis J44.9 Active without exacerbation Medications Medication Code Code Instructions Start End Date Status Dosage System Date Ferrous MAC 53067725884 325 (65 Fe) MG Mar 22, Active 1 tablet Sulfate Orally Once a 2017 Results No Known Results Summary Purpose eClinicalWorks Submission
--- OUTSIDE RECORDS SUMMARY | 2018-09-16 06:23 | XMS REPORT ---
:1955 Author Organization eClinicalWorks Care Team Providers Name Role Phone Rebolledo, Sharmaine Provider Role Unavailable Allergies, Adverse Reactions, Alerts Substance Reaction Event Type N.K.D.A. Info Not Available Non Drug Allergy Problems Problem Type Condition Code Onset Dates Condition Status Problem Other chronic pain G89.29 Active Problem Chronic obstructive bronchitis J44.9 Active without exacerbation Problem Prostate ca C61 Active Problem Type 2 diabetes mellitus without E11.9 Active complication, without long-term current use of insulin Assessment Other chronic pain G89.29 Active Problem Controlled type 2 diabetes mellitus E11.9 Active without complication, without long-term current use of insulin Assessment Primary insomnia F51.01 Active Assessment Low back pain M54.5 Active Problem Hyperlipidemia, mixed E78.2 Active Problem Primary insomnia F51.01 Active Problem Screening cholesterol level Z13.220 Active Problem Personal history of prostate cancer Z85.46 Active Problem Chest pain, unspecified type R07.9 Active Assessment Hyperlipidemia, mixed E78.2 Active Assessment Trigger ring finger of left hand M65.342 Active Assessment Hyperglobulinemia R77.1 Active Assessment Mild anemia D64.9 Active Assessment Essential hypertension I10 Active Assessment Tobacco abuse counseling Z71.6 Active Assessment Chronic obstructive bronchitis J44.9 Active without exacerbation Problem Low back pain M54.5 Active Assessment Cigarette nicotine dependence F17.210 Active without complication Assessment Type 2 diabetes mellitus without E11.9 Active complication, without long-term current use of insulin Problem Essential hypertension I10 Active Medications Medication Code Code Instructions Start End Status Dosage System Date Date Mirtazapine ND 81900277165 15 Orally Once Active 1 tablet at a day bedtime Combivent ND 99793786989 20-100 MCG/ACT Active 1 puff Respimat Inhalation Four times a day Atorvastatin ND 66795144267 10 MG Orally Aug 25, Active 1 tablet Calcium Once a day 2018 blood glucose NDC 0 n/s once a day Aug 25, Active one test strip 2019 Alcohol Prep NDC 0 Aug 25, Active as directed Pads 2019 Ferrous Sulfate NDC 31180551020 325 (65 Fe) MG Mar 22, Active 1 tablet Orally Once a 2017 day Zestoretic [facility] 82725163764 20-12.5 MG Active 1 tablet Orally Once a day Mirtazapine [facility] 21979810563 30 MG Orally Active 1 tablet at Once a day bedtime Gabapentin [facility] 13607102457 300 MG Orally Active 1 capsule daily every 8 hours Metformin HCl [facility] 50321790222 1000 MG Orally Aug 25, Active 1 tablet Once a day 2018 with a meal Lancets Super NDC 0 n/s finger Aug 25, Active one Thin stick once 2019 Glucometer NDC 0 n/s n/s use as Aug 25November 23, Active one directed 2018 2018 Symbicort [facility] 56049832949 160-4.5 MCG/ACT Active 2 puffs Inhalation Twice a day Results No Known Results Summary Purpose eClinicalWorks Submission
--- OUTSIDE RECORDS SUMMARY | 2018-09-16 06:23 | XMS REPORT ---
[...] history of prostate cancer Z85.46 Active Assessment Tobacco abuse counseling Z71.6 Active Problem Primary insomnia F51.01 Active Problem Screening cholesterol level Z13.220 Active Problem Prostate ca C61 Active Problem Other chronic pain G89.29 Active Problem Chest pain, unspecified type R07.9 Active Problem Chronic obstructive bronchitis J44.9 Active without exacerbation Assessment Low back pain M54.5 Active Assessment Other chronic pain G89.29 Active Assessment Screening cholesterol level Z13.220 Active Assessment Cigarette nicotine dependence F17.210 Active without complication Assessment Mild anemia D64.9 Active Assessment Primary insomnia F51.01 Active Assessment Prediabetes R73.03 Active Assessment Chronic obstructive bronchitis J44.9 Active without exacerbation Assessment Hyperglobulinemia R77.1 Active Assessment Essential hypertension I10 Active Medications Medication Code Code Instructions Start End Status Dosage System Date Date Ferrous Sulfate [facility] 04749760955 325 (65 Fe) MG Mar 22, Active 1 tablet Orally Once a 2017 day Mirtazapine [facility] 07696224999 15 Orally Once Active 1 tablet a day at bedtime Symbicort [facility] 89332930094 160-4.5 MCG/ACT Active 2 puffs Inhalation Twice a day Zestoretic [facility] [address]-85 12.5-10 MG Active 1 tablet Orally Once a day Gabapentin [facility] 18478246064 300 MG Orally Active 1 capsule daily every 8 hours Mirtazapine [facility] 69620464031 30 MG Orally Active 1 tablet Once a day at bedtime Combivent [facility] 98208130366 20-100 MCG/ACT Active 1 puff Respimat Inhalation Four times a day Results No Known Results Summary Purpose eClinicalWorks Submission
[2018-09-16] MEDS ORDERED: CEFAZOLIN/SWI 1gm 1 GM/10 ML SYR ONE (06:34)
[2018-09-16] MEDS ORDERED: Ringers Lactate 1,000 ML IV ONE (06:34)
[2018-09-16] MEDS ORDERED: LIDOCAINE 1% MPF 30 ML VIAL ONE (06:34)
[2018-09-16] MEDS ORDERED: FENTANYL CITR 100 MCG/2 ML ONE ×2 (07:06→08:38)
[2018-09-16] MEDS ORDERED: PROPOFOL 200 MG/20 ML VIAL IV ONE (07:06)
[2018-09-16] MEDS ORDERED: LIDOCAINE 2% MPF 5 ML VIAL ONE (07:07)
[2018-09-16] MEDS ORDERED: MIDAZOLAM HCL 2 MG/2 ML INJ ONE (07:07)
[2018-09-16] MEDS ORDERED: ONDANSETRON 4 MG/2 ML VIAL ONE (07:08)
--- NOTE | 2018-09-16 07:29 | P.OP ---
Preoperative diagnosis: left 4th trigger digit Postoperative diagnosis: same Primary procedure: left 4th trigger digit release Estimated blood loss: <3ccs Complications: None Transferred to: Recovery Room Condition: Good
[2018-09-16 08:57] VITALS: BP 136/66; TEMP 97.8; O2SAT 100
[2018-09-16] MEDS ORDERED: TRAMADOL 37.5mg/APAP 325mg PER TAB ONE (08:59)
--- NOTE | 2018-09-16 19:58 | OP ---
Date of Procedure: 09/16/2018 Surgeon: Nilesh Saleem MD Preoperative Diagnosis: Left fourth trigger digit. Postoperative Diagnosis: Left fourth trigger digit. Procedure: Left fourth trigger digit open release. Estimated Blood Loss: Less than 3 cc. Complications: There were no complications. Specimens: No pathology specimen sent. Indications For Operation: Mr. Allan is a 63-year-old male who unfortunately has been having signif icant problems with his left hand for some time. He has been essentially unable to bend his fourth d igit because of triggering. He has since essentially quit trying to make a fist because of pain and disability related to his hand. All risks, benefits, and alternatives to open trigger digit release have been discussed with the patient, and he states he understands things as presented. He was told that he may have retained stiffness for quite a bit of time. He states he understands things as pres ented and wishes to proceed. Description Of Procedure: The patient was taken to the operating room and placed in the supine posit ion. General anesthesia was obtained by the staff. Following this, a well-padded tourniquet was eva tito on the superior left arm. His left upper extremity was then prepped and draped in usual sterile fashion for the procedure. Following this, his arm was then elevated, but not exsanguinated. Tourni quet was raised. A standard transverse incision was made just distal to the palmar crease and taken down carefully through skin only. Hemostasis being maintained using bipolar electrocautery. Further blunt dissection was used, spreading to allow for visualization of the tendon sheath. The tendon sh eath itself did appear to be quite hypertrophic. It was divided and after a small dayne was made, it was raised from a proximal to distal direction. It was then released from distal to proximal directi on. At no time were any sharp instruments placed outside the direct operative field. After the rele ase, the undersurface of the sheath was identified and the A1 valencia was more easily seen after relea se and was definitely completely released and no constricting bands. The wound was gently irrigated. The tourniquet was released. There was no significant bleeding. The skin was closed using interru pted nylon sutures. The patient was then placed in a well-padded sterile dressing, awakened, and christopher en to Recovery in good condition. There were no complications. SE/MODL Voice ID: [id number] Report ID: [id number]
== END 2018-09-16 09:26 | disposition home or self-care (01) ==
LOC: OR 06:12
PROVIDERS: ATTEND Orthopaedic Surgery
PROC: 0LN80ZZ Release Left Hand Tendon, Open Approach (ICD-10-PCS; principal; 2018-09-16 07:30)
DX: M65.342 Trigger finger, left ring finger (principal)
CPT/HCPCS: 36415; 80048; 85025; 93005; J0690; J2250; J2405; J2704; J3010

== ENCOUNTER 2019-04-24 15:48 | Emergency (ER) | payer MEDICAID ==
--- NOTE | 2019-04-24 16:31 | ER ---
Nurse's Notes [facility] Name: Guido Allan Age: 63 yrs Sex: Male : 1955 Arrival Date: 04/24/2019 Time: 15:50 Bed 17 Private MD: Diagnosis: Cellulitis of left finger Presentation: 04/24 15:59 Presenting complaint: Patient states: LEFT 3RD FINGER PUNCTURE WOUND WITH NAIL x1 WK ss AGO. Transition of care: patient was not received from another setting of care. Onset of symptoms is unknown. Risk Assessment: Do you want to hurt yourself or someone else? Patient reports no desire to harm self or others. Initial Sepsis Screen: Does the patient meet any 2 criteria? No. Patient's initial sepsis screen is negative. Does the patient have a suspected source of infection? No. Patient's initial sepsis screen is negative. Care prior to arrival: None. 15:59 Method Of Arrival: Ambulatory ss 15:59 Acuity: ALANA 3 ss Historical: - Allergies: 16:01 NKDA; ss - Home Meds: 16:01 [place] 10-325 mg Oral tab 1 tab every 4 hours for lower back pain [Active]; lisinopril ss 20 mg Oral tab 1 tab once daily [Active]; Hormone Injection every 4 months for Prostate Cancer [Active]; inhaler as needed [Active]; - PMHx: 16:01 Arthritis; COPD; Hyperlipidemia; Hypertension; Prostate Cancer; ss - Immunization history:: Last tetanus immunization: unknown. - Social history:: Smoking status: Patient uses tobacco products, unknown amount Patient/guardian denies using alcohol, street drugs, The patient lives with family. - Ebola Screening: : No symptoms or risks identified at this time. - Family history:: not pertinent. Assessment: 16:10 General: Appears in no apparent distress. well groomed, well developed, well nourished, sg Behavior is calm, cooperative, appropriate for age. Pain: Complains of pain in left middle finger Quality of pain is described as throbbing. Neuro: Level of Consciousness is awake, alert, obeys commands, Oriented to person, place, time, Elevator Constructor Hydraulic are equal bilaterally. Cardiovascular: Patient's skin is warm and dry. Chest pain is denied. Respiratory: Airway is patent Respiratory effort is even, unlabored, Respiratory pattern is regular, symmetrical. GI: Abdomen is round non-distended, Reports tolerance of fluids, tolerance of food. : No signs and/or symptoms were reported regarding the genitourinary system. EENT: No signs and/or symptoms were reported regarding the EENT system. Derm: Skin is intact, is healthy with good turgor, Skin is dry, Skin is normal, Skin temperature is warm. Musculoskeletal: Circulation, motion, and sensation intact. Range of motion: intact in all extremities, Swelling present in left middle finger. 16:46 Reassessment: awaiting shot time prior to discharge to home. Vital Signs: 16:01 BP 178 / 83; Pulse 92; Resp 18; Temp 98; Pulse Ox 99% ; Weight 108.86 kg; Height 6 ft. (182.88 cm); 17:00 BP 155 / 77; Pulse 88; Resp 17; Temp 98.1; Pulse Ox 99% on R/A; Pain 4/10; sg 16:01 Body Mass Index 32.55 (108.86 kg, 182.88 cm) ED Course: 15:50 Patient arrived in ED. as 16:00 Triage completed. 16:01 Arm band placed on. 16:05 Nilesh Love, RN is Primary Nurse. 16:05 Patient has correct armband on for positive identification. Bed in low position. Call sg light in reach. Side rails up X2. Pulse ox on. NIBP on. Warm blanket given. Head of bed elevated. 16:15 Graham Hammond MD is Attending Physician. ma2 17:01 No provider procedures requiring assistance completed. Patient did not have IV access sv during this emergency room visit. Administered Medications: 16:40 Drug: TORadol 60 mg Route: IM; Site: left deltoid; sg 17:00 Follow up: Response: No adverse reaction sv 16:42 Drug: Tetanus-Diphtheria Toxoid Adult 0.5 ml {[employer] Vp: [employer]. Exp: 11/22/2020. Lot #: [id number]. } Route: IM; Site: right deltoid; 17:00 Follow up: Response: No adverse reaction sv Outcome: 16:30 Discharge ordered by . ma2 17:01 Patient left the ED. sg 17:01 Discharged to home ambulatory. sv 17:01 Condition: stable 17:01 Discharge instructions given to patient, Instructed on discharge instructions, follow up and referral plans. no drinking with medication, no driving heavy equipment, medication usage, Demonstrated understanding of instructions, follow-up care, medications, Prescriptions given X 3. Signatures: Crystal De La Cruz RN RN sv Gay, Steven, RN RN sg Martinez, Amelia as Smirch, Shelby, RN RN ss Alzahri, Mohammad, MD MD ma2
--- NOTE | 2019-04-24 16:31 | EDPHYS ---
Physician Documentation [facility] Name: Guido Allan Age: 63 yrs Sex: Male : 1955 Arrival Date: 04/24/2019 Time: 15:50 Bed 17 Private MD: ED Physician Graham Hammond HPI: 04/24 16:24 This 63 yrs old Black Male presents to ER via Ambulatory with complaints of Finger ma2 Injury. 16:24 Associated injuries: The patient sustained no obvious injury. Onset: The ma2 symptoms/episode began/occurred gradually, 1 week(s) ago. The patient has experienced similar episodes in the past. left middle finger pain for a week, has had laceration from nail injury that healed . Historical: - Allergies: 16:01 NKDA; ss - Home Meds: 16:01 [place] 10-325 mg Oral tab 1 tab every 4 hours for lower back pain [Active]; lisinopril ss 20 mg Oral tab 1 tab once daily [Active]; Hormone Injection every 4 months for Prostate Cancer [Active]; inhaler as needed [Active]; - PMHx: 16:01 Arthritis; COPD; Hyperlipidemia; Hypertension; Prostate Cancer; ss - Immunization history:: Last tetanus immunization: unknown. - Social history:: Smoking status: Patient uses tobacco products, unknown amount Patient/guardian denies using alcohol, street drugs, The patient lives with family. - Ebola Screening: : No symptoms or risks identified at this time. - Family history:: not pertinent. ROS: 16:24 Constitutional: Negative for fever, chills, and weight loss. ma2 16:24 All other systems are negative. Exam: 16:24 Constitutional: This is a well developed, well nourished patient who is awake, alert, ma2 and in no acute distress. Chest/axilla: Normal chest wall appearance and motion. Nontender with no deformity. No lesions are appreciated. Cardiovascular: Regular rate and rhythm with a normal S1 and S2. No gallops, murmurs, or rubs. Normal PMI, no JVD. No pulse deficits. Respiratory: Lungs have equal breath sounds bilaterally, clear to auscultation and percussion. No rales, rhonchi or wheezes noted. No increased work of breathing, no retractions or nasal flaring. Abdomen/GI: Soft, non-tender, with normal bowel sounds. No distension or tympany. No guarding or rebound. No evidence of tenderness throughout. Skin: Warm, dry with normal turgor. Normal color with no rashes, no lesions, and no evidence of cellulitis. MS/ Extremity: left middle finger with healed laceration has redness and tender phelon, no abscess or fluctuance, no signs of tenosynoivitis, otherwise Pulses equal, no cyanosis. Neurovascular intact. Full, normal range of motion. Neuro: Awake and alert, GCS 15, oriented to person, place, time, and situation. Cranial nerves II-XII grossly intact. Motor strength 5/5 in all extremities. Sensory grossly intact. Cerebellar exam normal. Normal gait. Vital Signs: 16:01 BP 178 / 83; Pulse 92; Resp 18; Temp 98; Pulse Ox 99% ; Weight 108.86 kg; Height 6 ft. ss (182.88 cm); 17:00 BP 155 / 77; Pulse 88; Resp 17; Temp 98.1; Pulse Ox 99% on R/A; Pain 4/10; sg 16:01 Body Mass Index 32.55 (108.86 kg, 182.88 cm) ss MDM: 16:15 Patient medically screened. ma2 16:24 Differential diagnosis: closed head injury, phelon, unlikely abscess, no cellulitis. ma2 Data reviewed: vital signs, nurses notes. Counseling: I had a detailed discussion with the patient and/or guardian regarding: the historical points, exam findings, and any diagnostic results supporting the discharge/admit diagnosis, the presence of at least one elevated blood pressure reading (>120/80) during this emergency department visit, the need for outpatient follow up. 16:32 Differential diagnosis: closed head injury, could be an early felon, he has no ma2 appreciated fluctuance, soft tissue infection is likely, i explained to him to return to er if he is not feeling butter in the next 1-2 days. Administered Medications: 16:40 Drug: TORadol 60 mg Route: IM; Site: left deltoid; sg 17:00 Follow up: Response: No adverse reaction sv 16:42 Drug: Tetanus-Diphtheria Toxoid Adult 0.5 ml {Palliative Care Physician: [employer]. Exp: 11/22/2020. Lot #: [id number]. } Route: IM; Site: right deltoid; 17:00 Follow up: Response: No adverse reaction sv Disposition: 04/24/19 16:30 Discharged to Home. Impression: Cellulitis of left finger. - Condition is Stable. - Discharge Instructions: Cellulitis, Adult. - Prescriptions for Clindamycin HCl 300 mg Oral Capsule - take 1 capsule by ORAL route every 6 hours for 10 days; 40 capsule. Tylenol- Codeine #3 300-30 mg Oral Tablet - take 2 tablet by ORAL route every 6 hours As needed; 30 tablet. Bactrim 400- 80 mg Oral Tablet - take 2 tablets by ORAL route every 12 hours; 20 tablet. - Medication Reconciliation Form, Thank You Letter, Antibiotic Education, Prescription Opioid Use form. - Follow up: Private Physician; When: Tomorrow; Reason: Continuance of care. Signatures: Nilesh Love RN CECILIA sg Marly Galvez RN RN Graham Hammond MD MD ma2 Crystal De La Cruz RN sv Corrections: (The following items were deleted from the chart) 17:01 16:30 04/24/2019 16:30 Discharged to Home. Impression: Cellulitis of left finger. sg Condition is Stable. Forms are Medication Reconciliation Form, Thank You Letter, Antibiotic Education, Prescription Opioid Use. Follow up: Private Physician; When: Tomorrow; Reason: Continuance of care. anuel
[2019-04-24] MEDS ORDERED: KETOROLAC 30 MG/ML INJ ONE ×2 (16:33→16:34)
[2019-04-24] MEDS ORDERED: TETANUS & DIPHTHERIA TOX,ADULT 0.5 ML VIAL ONE (16:40)
[2019-04-24 17:28] VITALS: BP 178/83; TEMP 98; O2SAT 99
== END 2019-04-24 17:01 | disposition home or self-care (01) ==
LOC: ER 15:48
DX: L03.012 Cellulitis of left finger (principal); I10 Essential (primary) hypertension; Z23 Encounter for immunization; Z72.0 Tobacco use; Z85.46 Personal history of malignant neoplasm of prostate
CPT/HCPCS: 90471; 90714; 96372; 99283

== ENCOUNTER 2020-09-17 16:23 | Emergency (ER) | payer OTHER ==
--- OUTSIDE RECORDS SUMMARY | 2020-09-17 16:26 | XMS REPORT | Continuity of Care Document ---
:1955 Author Organization [facility] t Address [address] [place] [address] Care Team Providers Name Role Phone Unavailable Unavailable Unavailable Problems This patient has no known problems. Allergies, Adverse Reactions, Alerts This patient has no known allergies or adverse reactions. Medications Ordered Filled Start Stop Current Ordering Indication Dosage Frequency Signature Comments Components Source Medication Medication Date Date Medication? Clinician (SIG) Name Name Gabapentin Gabapentin Yes Na Rebolledo [address] [facility] Combivent Combivent Yes Na Rebolledo [address] [facility] Respimat Respimat needed [facility] Atorvastati Atorvastati Yes Na Rebolledo [address] [facility] n Calcium n Calcium [facility] Symbicort Symbicort Yes Na Rebolledo [address] [facility] Lancets Lancets Yes Na Rebolledo one [facility] Super Thin Super Thin [facility] Alcohol Alcohol Yes Na Rebolledo as [facility] Prep Pads Prep Pads directed [facility] Mirtazapine Mirtazapine Yes Na Rebolledo [address] [facility] at bedtime [facility] Amlodipine Amlodipine Yes Na Rebolledo as [facility] Besy-Benaze Besy-Benaze directed [facility] - pril HCl pril HCl [facility] Ferrous Ferrous Yes Na Rebolledo [address] Sulfate Sulfate [facility] Metformin Metformin Yes Na Rebolledo [address] [facility] HCl HCl with a [facility] - meal [facility] blood blood Yes Na Rebolledo one [facility] glucose glucose [facility] - test strip test strip [facility] Mirtazapine Mirtazapine Yes Na Rebolledo [address] [facility] at bedtime [facility] Amlodipine Amlodipine Yes Na Rebolledo as [facility] Besy-Benaze Besy-Benaze directed [facility] - pril HCl pril HCl [facility] Albuterol Albuterol Yes Na Rebolledo INHALE [address] [facility] Sulfate HFA Sulfate HFA PUFFS [facility] - NEEDED [facility] EVERY 6 l HOURS [facility] Mirtazapine Mirtazapine Yes Na Rebolledo [address] [facility] Procedures This patient has no known procedures. Encounters Start End Encounter Admission Attending Care Care Encounter Source Date/Time Date/Time Type Type Clinicians Facility Department ID 2020-07-03 2020-07-03 [id number] 2020-02-26 2020-02-26 [facility] [id number] [facility] 16:13:00 16:13:00 [employer] [facility] Medicine Medicine Outpati ent Clinics 2020-02-26 2020-02-26 [facility] [id number] [facility] 13:40:00 13:40:00 [employer] [facility] Medicine l Medicine Outpati ent Clinics 2020-01-16 2020-01-16 [facility] [id number] [facility] 13[facility]06:00 13:06:00 [employer] [facility] Medicine l Medicine Outpati ent Clinics 2019-11-27 2019-11-27 [facility] [id number] [facility] 12:04:00 12:04:00 [employer] [facility] Medicine l Medicine Outpati ent Clinics 2019-11-20 2019-11-20 [facility] [id number] [facility] 16:57:00 16:57:00 [employer] [facility] Medicine Medicine Outpati ent Clinics 2019-09-15 2019-09-15 [facility] [id number] [facility] 16:25:00 16:25:00 [place] [employer] [place] - [address] [facility] Medicine Outpati ent Clinics 2019-09-07 2019-09-07 [facility] [id number] [facility] 10:40:00 10:40:00 [place] [employer] [place] - [address] [facility] Medicine Outpati ent Clinics 2019-08-25 2019-08-25 [facility] [id number] 11:31:00 11:31:00 [place] [employer] - [address] [facility] Medicine Outpati ent Clinics 2019-02-07 2019-02-07 [facility] [id number] [address] 09:23:00 09:23:00 [place] [employer] - [address] [facility] Medicine Outpati ent Clinics 2019-01-19 2019-01-19 [facility] [id number] 16:41:00 16:41:00 [place] [employer] - [address] [facility] Medicine Outpati ent Clinics 2019-01-10 2019-01-10 [facility] [id number] 14:20:00 14:20:00 [place] [employer] - [address] [facility] Medicine Outpati ent Clinics 2018-12-29 2018-12-29 [facility] [id number] [address] 11:04:00 11:04:00 [place] [employer] - [address] [facility] Medicine Outpati ent Clinics 2018-08-25 2018-08-25 [facility] [id number] [facility] 09:30:00 09:30:00 [place] [employer] - [address] [facility] Medicine Outpati ent Clinics 2018-07-07 2018-07-07 [facility] [id number] [facility] 14:56:00 14:56:00 [place] [employer] [address] [facility] Medicine Outpati ent Clinics 2018-06-22 2018-06-22 [facility] [id number] 08:45:00 08:45:[address] [place] [address] [employer] [facility] Medicine Outpati ent Clinics 2018-03-23 2018-03-23 [facility] [id number] 08[facility]26:00 08:26:00 t [employer] s - Drive [facility] Medicine Outpati ent Clinics 2018-03-22 2018-03-22 [facility] [id number] 08:13:00 08:13:00 t [employer] [facility] Medicine Outpati ent Clinics 2018-03-21 2018-03-21 [facility] [id number] 09:30:00 09:30:00 t [employer] [facility] Medicine Outpati ent Clinics 2017-12-28 2017-12-28 [facility] [id number] 10:38:00 10:38:00 t [employer] [facility] Medicine Outpati ent Clinics 2017-11-29 2017-11-29 [facility] [id number] [facility] 11:00:00 11:00:00 t [employer] [facility] Medicine Outpati ent Clinics Results This patient has no known results.
[2020-09-17] MEDS ORDERED: TETRACAINE HCL 0.5% 4ML OPTH ONE (17:08)
[2020-09-17] MEDS ORDERED: FLUORESCEIN SODIUM 1 MG/WRAP ONE (17:08)
[2020-09-17] MEDS ORDERED: HYDROCODONE/APAP 10/325 TAB ONE (17:08)
[2020-09-17] MEDS ORDERED: TETANUS & DIPHTHERIA TOX,ADULT 0.5 ML VIAL ONE (17:10)
--- NOTE | 2020-09-17 17:11 | ER ---
Nurse's Notes [facility] Name: Guido Allan Age: 65 yrs Sex: Male : 1955 Arrival Date: 09/17/2020 Time: 16:24 Bed 4 Private MD: Diagnosis: Injury of conjunctiva and corneal abrasion without foreign body, left eye Presentation: 09/17 16:31 Chief complaint: Patient states: 1. Metal shaving to L eye for past two hours. + L eye ll1 irritation 2. R lower tooth pain for 2 weeks. Coronavirus screen: Client denies travel out of the [place] in the last 14 days. At this time, the client does not indicate any symptoms associated with coronavirus-19. Ebola Screen: Patient denies travel to an Ebola-affected area in the 21 days before illness onset. Initial Sepsis Screen: Does the patient meet any 2 criteria? No. Patient's initial sepsis screen is negative. Does the patient have a suspected source of infection? Yes: Other: eye pain/irritation. Risk Assessment: Do you want to hurt yourself or someone else? Patient reports no desire to harm self or others. Onset of symptoms was September 17, 2020. 16:31 Method Of Arrival: Ambulatory ll1 16:31 Acuity: ALANA 3 ll1 Historical: - Allergies: 16:31 NKDA; ll1 - PMHx: 16:31 Arthritis; COPD; Hyperlipidemia; Hypertension; Prostate Cancer; ll1 - Immunization history:: Flu vaccine is not up to date. - Social history:: Smoking status: Patient reports the use of cigarette tobacco products, smokes one-half pack cigarettes per day. Screenin:48 Abuse screen: Denies threats or abuse. Denies injuries from another. Nutritional ph screening: No deficits noted. Tuberculosis screening: No symptoms or risk factors identified. Fall Risk None identified. Assessment: 17:13 General: Appears in no apparent distress. uncomfortable, Behavior is calm, cooperative, ph appropriate for age. Pain: Complains of pain in left eye and mouth. Neuro: Level of Consciousness is awake, alert, obeys commands, Oriented to person, place, time, situation. Cardiovascular: Capillary refill < 3 seconds in bilateral fingers Patient's skin is warm and dry. Respiratory: Airway is patent Respiratory effort is even, unlabored. EENT: Sclera/Cornea w/ abrasion noted on iris of left eye Reports pain in left eye. Derm: Skin is intact, Skin is pink, warm \T\ dry. Musculoskeletal: Circulation, motion, and sensation intact. Range of motion: intact in all extremities. Vital Signs: 16:31 BP 186 / 80; Pulse 81; Resp 17; Temp 98.5; Pulse Ox 100% ; Weight 99.79 kg; Height 6 ll1 ft. 0 in. (182.88 cm); Pain 8/10; 16:31 Body Mass Index 29.84 (99.79 kg, 182.88 cm) ll1 ED Course: 16:24 Patient arrived in ED. mr 16:31 Arm band placed on Patient placed in an exam room, on a stretcher. ll1 16:32 Triage completed. ll1 16:33 Alvarado Luis NP is PHCP. pm1 16:33 Torres Gallagher MD is Attending Physician. pm1 16:48 Patient has correct armband on for positive identification. Bed in low position. Call ph light in reach. Side rails up X 1. Pulse ox on. NIBP on. Door closed. Noise minimized. 16:58 Marly Galvez, CECILIA is Primary Nurse. ss 17:14 Assist provider with eye exam of left eye. using fluorescein stain, Performed by ph Alvarado Luis NP Patient tolerated well. 17:15 Patient did not have IV access during this emergency room visit. ph 17:25 Carmella Moore, RN is Primary Nurse. ph Administered Medications: 17:00 Drug: Tetracaine Drops 0.5 % 1 drops Route: Ophthalmic; Site: left eye; ph 17:15 Follow up: Response: No adverse reaction ph 17:00 Drug: [place] 10 mg-325 mg 1 tabs Route: PO; ph 17:15 Follow up: Response: No adverse reaction; Medication administered at discharge. ph 17:13 Not Given (Tetanus UTD): Tetanus-Diphtheria Toxoid Adult 0.5 ml IM once ph 17:26 Drug: Tobramycin Ointment (0.3 %) 0.5 inches Route: Ophthalmic; Site: left eye; ph 17:30 Follow up: Response: No adverse reaction ph Outcome: 17:10 Discharge ordered by MD. pm1 17:35 Discharged to home ambulatory. hb 17:35 Condition: stable 17:35 Discharge instructions given to patient, Instructed on discharge instructions, follow up and referral plans. medication usage, Demonstrated understanding of instructions, follow-up care, medications, Prescriptions given X 2. 17:35 Patient left the ED. Signatures: Yogesh Lizzy GalvezMarly, RN RN Carmella Moore RN RN Alvarado Luis, PACKAGE LINE RELIEF OPERATOR PACKAGE LINE RELIEF OPERATOR pm1 Ines Pa RN RN Andra Barrios RN RN ll1 Corrections: (The following items were deleted from the chart) 16:33 16:31 Chief complaint: Patient states: Metal shaving to L eye for past two hours. + L ll1 eye irritation ll1
--- NOTE | 2020-09-17 17:11 | EDPHYS ---
Physician Documentation [facility] Name: Guido Allan Age: 65 yrs Sex: Male : 1955 Arrival Date: 09/17/2020 Time: 16:24 Bed 4 Private MD: ED Physician Torres Gallagher HPI: 09/17 16:46 This 65 yrs old Black Male presents to ER via Ambulatory with complaints of Foreign pm1 Body In Eye. 16:46 The patient is experiencing foreign body sensation, to the left eye, caused by metal pm1 fragment. Onset: The symptoms/episode began/occurred just prior to arrival. Duration: the symptoms are continuous. Aggravated by blinking, Alleviated by nothing. Associated signs and symptoms: Pertinent negatives: None. Patient does not utilize any form of vision correction. Severity of symptoms: in the emergency department the symptoms are unchanged. The patient has not experienced similar symptoms in the past. Patient grinding rebar without eye protection and he got a piece of metal fragment in his left eye. Historical: - Allergies: 16:31 NKDA; ll1 - PMHx: 16:31 Arthritis; COPD; Hyperlipidemia; Hypertension; Prostate Cancer; ll1 - Immunization history:: Flu vaccine is not up to date. - Social history:: Smoking status: Patient reports the use of cigarette tobacco products, smokes one-half pack cigarettes per day. ROS: 16:46 Constitutional: Negative for fever, chills, and weight loss. pm1 16:46 Cardiovascular: Negative for chest pain, palpitations, and edema, Respiratory: Negative for shortness of breath, cough, wheezing, and pleuritic chest pain, Skin: Negative for injury, rash, and discoloration, Neuro: Negative for headache, weakness, numbness, tingling, and seizure. 16:46 Eyes: Positive for foreign body sensation, pain, Negative for vision loss. Exam: 17:09 Constitutional: This is a well developed, well nourished patient who is awake, alert, pm1 and in no acute distress. Head/Face: Normocephalic, atraumatic. 17:09 Skin: Warm, dry with normal turgor. Normal color with no rashes, no lesions, and no evidence of cellulitis. 17:09 Eyes: Periorbital structures: appear normal, Pupils: no acute changes, Extraocular movements: no acute changes, Conjunctiva: injected, in the left eye, Corneas: abrasion, that is small, approximately 1 mm(s), at 9 o'clock, foreign body, is not appreciated, a fluorescein strip employed to appreciate the findings, Lids and lashes: appear normal. 17:09 Cardiovascular: Exam negative for acute changes, Rate: normal, Rhythm: regular, Pulses: no pulse deficits are appreciated. 17:09 Respiratory: Exam negative for acute changes, respiratory distress, shortness of breath. 17:09 Neuro: Exam negative for acute changes, Orientation: is normal, Mentation: is normal, Motor: is normal, moves all fours, Gait: is steady, at a normal pace, without difficulty. Vital Signs: 16:31 BP 186 / 80; Pulse 81; Resp 17; Temp 98.5; Pulse Ox 100% ; Weight 99.79 kg; Height 6 ll1 ft. 0 in. (182.88 cm); Pain 8/10; 16:31 Body Mass Index 29.84 (99.79 kg, 182.88 cm) ll1 MDM: 16:46 Patient medically screened. pm1 17:09 Data reviewed: vital signs. Data interpreted: Pulse oximetry: on room air is 100 %. pm1 Interpretation: normal. Counseling: I had a detailed discussion with the patient and/or guardian regarding: the historical points, exam findings, and any diagnostic results supporting the discharge/admit diagnosis, the need for outpatient follow up, for definitive care, an opthalmologist, to return to the emergency department if symptoms worsen or persist or if there are any questions or concerns that arise at home. 03/ 16:46 Order name: Visual Acuity; Complete Time: 17:13 pm1 03/ 16:46 Order name: Eye Tray; Complete Time: 17:13 pm1 03/ 16:46 Order name: Fluoresene Opth strip; Complete Time: 17:13 pm1 Administered Medications: 17:00 Drug: Tetracaine Drops 0.5 % 1 drops Route: Ophthalmic; Site: left eye; ph 17:15 Follow up: Response: No adverse reaction ph 17:00 Drug: Emmons 10 mg-325 mg 1 tabs Route: PO; ph 17:15 Follow up: Response: No adverse reaction; Medication administered at discharge. ph 17:13 Not Given (Tetanus UTD): Tetanus-Diphtheria Toxoid Adult 0.5 ml IM once ph 17:26 Drug: Tobramycin Ointment (0.3 %) 0.5 inches Route: Ophthalmic; Site: left eye; ph 17:30 Follow up: Response: No adverse reaction ph Disposition: 18:16 Co-signature as Attending Physician, Torres Gallagher MD. rn Disposition: 09/17/20 17:10 Discharged to Home. Impression: Injury of conjunctiva and corneal abrasion without foreign body, left eye. - Condition is Stable. - Discharge Instructions: Corneal Abrasion. - Prescriptions for Erythromycin 5 mg/gram (0.5 %) Ophthalmic Ointment - apply 0.5 inch ribbon by OPHTHALMIC route every 8 hours for 7 days; 1 tube. Tylenol- Codeine #3 300-30 mg Oral Tablet - take 2 tablets by ORAL route every 4-6 hours As needed; 20 tablet. - Medication Reconciliation Form, Thank You Letter, Antibiotic Education, Prescription Opioid Use form. - Follow up: Emergency Department; When: As needed; Reason: Worsening of condition. Follow up: Private Physician; When: 1 - 2 days; Reason: Recheck today's complaints, Continuance of care, Re-evaluation by your physician. - Problem is new. - Symptoms have improved. Signatures: Torres Gallagher MD MD rn Hall, Patricia, RN RN Alvarado Luis, MARL[employer] pm1 Ines Pa RN RN Andra Siegel RN RN ll1 Corrections: (The following items were deleted from the chart) 17:35 17:10 09/17/2020 17:10 Discharged to Home. Impression: Injury of conjunctiva and hb corneal abrasion without foreign body, left eye. Condition is Stable. Forms are Medication Reconciliation Form, Thank You Letter, Antibiotic Education, Prescription Opioid Use. Follow up: Emergency Department; When: As needed; Reason: Worsening of condition. Follow up: Private Physician; When: 1 - 2 days; Reason: Recheck today's complaints, Continuance of care, Re-evaluation by your physician. Problem is new. Symptoms have improved. pm1
[2020-09-17] MEDS ORDERED: TOBRAMYCIN SULF 0.3% OPTH OINT ONE (17:40)
[2020-09-18 13:35] VITALS: BP 186/80; TEMP 98.5; O2SAT 100
== END 2020-09-17 17:35 | disposition home or self-care (01) ==
LOC: ER 16:23
DX: S05.02XA Injury of conjunctiva and corneal abrasion without foreign body, left eye, initial encounter (principal); I10 Essential (primary) hypertension; F17.210 Nicotine dependence, cigarettes, uncomplicated; Z23 Encounter for immunization; Z85.46 Personal history of malignant neoplasm of prostate
CPT/HCPCS: 90714; 99284

== ENCOUNTER 2023-05-08 23:16 | Emergency (ER) | payer OTHER ==
--- OUTSIDE RECORDS SUMMARY | 2023-05-08 23:20 | XMS REPORT | Continuity of Care Document ---
:1955 Author Organization [facility] t Address [address] [place] [address] Care Team Providers Name Role Phone Lakhwinder Peter Attending Clinician Unavailable Jen Hernandez Attending Clinician Unavailable Sharmaine SOTELO Attending Clinician Unavailable [email or web address] Attending Clinician Unavailable [email or web address] Admitting Clinician Unavailable Payers Payer Name Policy Type Policy Number Effective Date Expiration Date Bryan rivera [facility] [id number] 2020 (MEDICARE 00:00:00 REPLACEMENT HMO) Problems Condition Condition Condition Status Onset Resolution Last Treating Co mments Source Name Details Category Date Date Treatment Clinician Date [id number] 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 exacerbati Medica l on Center Malignant CA of Problem Common tumor of prostate Spirit prostate - [facility] [id number] Chest Problem Common pain, Spirit unspecifie - [facility]I d type [facility] [id number] Primary Problem Common insomnia Spirit - [facility] [id number] Controlled Problem Co mmon type 2 Spirit diabetes - [facility] mellitus [facility] complicati Medica l on, Center without long-term current use of insulin [id number] Hyperlipid Problem Co mmon emia, Spirit mixed - [facility] [id number] Personal Problem Comm on history of Spirit prostate - [facility] cancer [facility] [id number] Screening Problem Com mon cholestero Spirit l level - CHI [facility] [id number] Iron Problem Common deficiency Spirit anemia, - CHI unspecifie d iron [facility] deficiency Medica l anemia Center type [id number] Mild Problem Common depression [facility] [id number] Smokes Problem Common with Spirit greater - CHI than [address] [facility] pack year [facility] [id number] Current Problem Common moderate Spirit episode of - [facility] major [facility] Medical without Center prior episode Allergies, Adverse Reactions, Alerts This patient has no known allergies or adverse reactions. Social History Social Habit Start Date Stop Date Quantity Comments Source History of Tobacco Current Smoker Co mmon Spirit - [facility] Use [facility] Sex Assigned At Com mon Spirit - [facility] Smoking Status Start Date Stop Date Source Current Smoker 2023-03-17 00:00:00 Common [facility] Medications Ordered Filled Start Stop Current Ordering Indication Dosage Frequency Signature Comments Components Source Medication Medication Date Date Medication? Clinician (SIG) Name Name Gabapentin Gabapentin Yes Na Sotelo 1 capsule Common 02-25 Spirit 00:00: - [facility] Combivent Combivent Yes Na Sotelo 1 puff as Common Respimat Respimat needed [facility] Atorvastati Atorvastati Yes Na Sotelo 1 tablet Common n Calcium n Calcium [facility] Symbicort Symbicort Yes Na Sotelo 2 puffs Common [facility] Lancets Lancets Yes Na Sotelo one Common Super Thin Super Thin Spi rit [facility] Alcohol Alcohol Yes Na Sotelo as Common Prep Pads Prep Pads directed S pirit [facility] Mirtazapine Mirtazapine Yes Na Sotelo 1 tablet Common at bedtime [facility] Amlodipine Amlodipine Yes Na S[place] as Common Besy-Benaze Besy-Benaze directed Spirit pril HCl pril HCl - [facility] Ferrous Ferrous Yes Na Sotelo 1 tablet Co mmon Sulfate Sulfate [facility] Metformin Metformin Yes Na Sotelo 1 tablet Common HCl HCl with a Spirit meal - [facility] blood blood Yes Na Sotelo one Common glucose glucose Spirit test strip test strip - C HI [facility] Mirtazapine Mirtazapine Yes Na Sotelo 1 tablet Common at bedtime [facility] Amlodipine Amlodipine Yes Na S[place]elo as Common Besy-Benaze Besy-Benaze directed Spirit pril HCl pril HCl [facility] Albuterol Albuterol Yes Na Sotelo INHALE 2 Common Sulfate HFA Sulfate HFA PUFFS Spirit NEEDED - [facility] EVERY 6 [facility] Mirtazapine Mirtazapine Yes Na Sotelo 1 tablet Common at bedtime [facility] amLODIPine amLODIPine No QD amLODIPine Besy-Benaze Besy-Benaze Besy-Benaz pril HCl pril HCl epril HCl 2.5-10 MG 2.5-10 MG 2.5-10 MG Symbicort Symbicort No 2{puffs BID Symbicort 160-4.5 160-4.5 } 160-4.5 MCG/ACT MCG/ACT MCG/ACT Mirtazapine Mirtazapine No 1{table QD Mirtazapin 30 30 t_at_be e 30 dtime} Lancets Lancets No Lancets Super Thin Super Thin Super Thin n/s n/s n/s Gabapentin Gabapentin No Gabapentin 300 MG 300 MG 300 MG metFORMIN metFORMIN No 1{table QD metFORMIN HCl 1000 MG HCl 1000 MG t_with_ HCl 1000 a_meal} MG blood blood No QD blood glucose glucose glucose test strip test strip test strip n/s n/s n/s Albuterol Albuterol No 6xD Albuterol Sulfate HFA Sulfate HFA Sulfate 108 (90 108 (90 HFA 108 Base) Base) (90 Base) MCG/ACT MCG/ACT MCG/ACT Atorvastati Atorvastati No 1{table QD Atorvastat n Calcium n Calcium t} in Calcium 10 MG 10 MG 10 MG Ferrous Ferrous No 1{table QD Ferrous Sulfate 325 Sulfate 325 t} Sulfate (65 Fe) MG (65 Fe) MG 325 (65 Fe) MG amLODIPine amLODIPine No QD amLODIPine Besy-Benaze Besy-Benaze Besy-Benaz pril HCl pril HCl epril HCl 2.5-10 MG 2.5-10 MG 2.5-10 MG Alcohol Alcohol No Alcohol Prep Pads Prep Pads Prep Pads Mirtazapine Mirtazapine No 1{table QD Mirtazapin 30 MG 30 MG t_at_be e 30 MG dtime} Mirtazapine Mirtazapine No 1{table QD Mirtazapin 15 15 t_at_be e 15 dtime} Combivent Combivent No Combivent Respimat Respimat Respimat 20-100 20-100 20-100 MCG/ACT MCG/ACT MCG/ACT amLODIPine amLODIPine No QD amLODIPine Besy-Benaze Besy-Benaze Besy-Benaz pril HCl pril HCl epril HCl 2.5-10 MG 2.5-10 MG 2.5-10 MG Symbicort Symbicort No 2{puffs BID Symbicort 160-4.5 160-4.5 } 160-4.5 MCG/ACT MCG/ACT MCG/ACT Mirtazapine Mirtazapine No 1{table QD Mirtazapin 30 30 t_at_be e 30 dtime} Lancets Lancets No Lancets Super Thin Super Thin Super Thin n/s n/s n/s Gabapentin Gabapentin No Gabapentin 300 MG 300 MG 300 MG metFORMIN metFORMIN No 1{table QD metFORMIN HCl 1000 MG HCl 1000 MG t_with_ HCl 1000 a_meal} MG blood blood No QD blood glucose glucose glucose test strip test strip test strip n/s n/s n/s Albuterol Albuterol No 6xD Albuterol Sulfate HFA Sulfate HFA Sulfate 108 (90 108 (90 HFA 108 Base) Base) (90 Base) MCG/ACT MCG/ACT MCG/ACT Atorvastati Atorvastati No 1{table QD Atorvastat n Calcium n Calcium t} in Calcium 10 MG 10 MG 10 MG Ferrous Ferrous No 1{table QD Ferrous Sulfate 325 Sulfate 325 t} Sulfate (65 Fe) MG (65 Fe) MG 325 (65 Fe) MG amLODIPine amLODIPine No QD amLODIPine Besy-Benaze Besy-Benaze Besy-Benaz pril HCl pril HCl epril HCl 2.5-10 MG 2.5-10 MG 2.5-10 MG Alcohol Alcohol No Alcohol Prep Pads Prep Pads Prep Pads metFORMIN metFORMIN No 1{table QD metFORMIN HCl 1000 MG HCl 1000 MG t_with_ HCl 1000 a_meal} MG amLODIPine amLODIPine No QD amLODIPine Besy-Benaze Besy-Benaze Besy-Benaz pril HCl pril HCl epril HCl 2.5-10 MG 2.5-10 MG 2.5-10 MG Mirtazapine Mirtazapine No 1{table QD Mirtazapin 15 15 t_at_be e 15 dtime} blood blood No QD blood glucose glucose glucose test strip test strip test strip n/s n/s n/s Combivent Combivent No Combivent Respimat Respimat Respimat 20-100 20-100 20-100 MCG/ACT MCG/ACT MCG/ACT Mirtazapine Mirtazapine No 1{table QD Mirtazapin 30 MG 30 MG t_at_be e 30 MG dtime} Ferrous Ferrous No 1{table QD Ferrous Sulfate 325 Sulfate 325 t} Sulfate (65 Fe) MG (65 Fe) MG 325 (65 Fe) MG Mirtazapine Mirtazapine No 1{table QD Mirtazapin 30 30 t_at_be e 30 dtime} Lancets Lancets No Lancets Super Thin Super Thin Super Thin n/s n/s n/s Gabapentin Gabapentin No Gabapentin 300 MG 300 MG 300 MG Atorvastati Atorvastati No 1{table QD Atorvastat n Calcium n Calcium t} in Calcium 10 MG 10 MG 10 MG Albuterol Albuterol No 6xD Albuterol Sulfate HFA Sulfate HFA Sulfate 108 (90 108 (90 HFA 108 Base) Base) (90 Base) MCG/ACT MCG/ACT MCG/ACT amLODIPine amLODIPine No QD amLODIPine Besy-Benaze Besy-Benaze Besy-Benaz pril HCl pril HCl epril HCl 2.5-10 MG 2.5-10 MG 2.5-10 MG Alcohol Alcohol No Alcohol Prep Pads Prep Pads Prep Pads metFORMIN metFORMIN No 1{table QD metFORMIN HCl 1000 MG HCl 1000 MG t_with_ HCl 1000 a_meal} MG amLODIPine amLODIPine No QD amLODIPine Besy-Benaze Besy-Benaze Besy-Benaz pril HCl pril HCl epril HCl 2.5-10 MG 2.5-10 MG 2.5-10 MG Mirtazapine Mirtazapine No 1{table QD Mirtazapin 15 15 t_at_be e 15 dtime} blood blood No QD blood glucose glucose glucose test strip test strip test strip n/s n/s n/s Combivent Combivent No Combivent Respimat Respimat Respimat 20-100 20-100 20-100 MCG/ACT MCG/ACT MCG/ACT Mirtazapine Mirtazapine No 1{table QD Mirtazapin 30 MG 30 MG t_at_be e 30 MG dtime} Ferrous Ferrous No 1{table QD Ferrous Sulfate 325 Sulfate 325 t} Sulfate (65 Fe) MG (65 Fe) MG 325 (65 Fe) MG Mirtazapine Mirtazapine No 1{table QD Mirtazapin 30 30 t_at_be e 30 dtime} Lancets Lancets No Lancets Super Thin Super Thin Super Thin n/s n/s n/s amLODIPine amLODIPine No QD amLODIPine Besy-Benaze Besy-Benaze Besy-Benaz pril HCl pril HCl epril HCl 2.5-10 MG 2.5-10 MG 2.5-10 MG Atorvastati Atorvastati No 1{table QD Atorvastat n Calcium n Calcium t} in Calcium 10 MG 10 MG 10 MG Albuterol Albuterol No 6xD Albuterol Sulfate HFA Sulfate HFA Sulfate 108 (90 108 (90 HFA 108 Base) Base) (90 Base) MCG/ACT MCG/ACT MCG/ACT Gabapentin Gabapentin No Gabapentin 300 MG 300 MG 300 MG Alcohol Alcohol No Alcohol Prep Pads Prep Pads Prep Pads Atorvastati Atorvastati No 1{table QD Atorvastat n Calcium n Calcium t} in Calcium 10 MG 10 MG 10 MG Mirtazapine Mirtazapine No 1{table QD Mirtazapin 15 15 t_at_be e 15 dtime} Gabapentin Gabapentin No Gabapentin 300 MG 300 MG 300 MG Combivent Combivent No Combivent Respimat Respimat Respimat 20-100 20-100 20-100 MCG/ACT MCG/ACT MCG/ACT Mirtazapine Mirtazapine No 1{table QD Mirtazapin 30 MG 30 MG t_at_be e 30 MG dtime} metFORMIN metFORMIN No 1{table QD metFORMIN HCl 1000 MG HCl 1000 MG t_with_ HCl 1000 a_meal} MG amLODIPine amLODIPine No amLODIPine Besy-Benaze Besy-Benaze Besy-Benaz pril HCl pril HCl epril HCl 2.5-10 MG 2.5-10 MG 2.5-10 MG Albuterol Albuterol No 6xD Albuterol Sulfate HFA Sulfate HFA Sulfate 108 (90 108 (90 HFA 108 Base) Base) (90 Base) MCG/ACT MCG/ACT MCG/ACT Alcohol Alcohol No Alcohol Prep Pads Prep Pads Prep Pads Symbicort Symbicort No 2{puffs BID Symbicort 160-4.5 160-4.5 } 160-4.5 MCG/ACT MCG/ACT MCG/ACT Lancets Lancets No Lancets Super Thin Super Thin Super Thin n/s n/s n/s Ferrous Ferrous No 1{table QD Ferrous Sulfate 325 Sulfate 325 t} Sulfate (65 Fe) MG (65 Fe) MG 325 (65 Fe) MG Mirtazapine Mirtazapine No 1{table QD Mirtazapin 30 30 t_at_be e 30 dtime} blood blood No QD blood glucose glucose glucose test strip test strip test strip n/s n/s n/s Atorvastati Atorvastati No 1{table QD Atorvastat n Calcium n Calcium t} in Calcium 10 MG 10 MG 10 MG Mirtazapine Mirtazapine No 1{table QD Mirtazapin 15 15 t_at_be e 15 dtime} Gabapentin Gabapentin No Gabapentin 300 MG 300 MG 300 MG Combivent Combivent No Combivent Respimat Respimat Respimat 20-100 20-100 20-100 MCG/ACT MCG/ACT MCG/ACT Mirtazapine Mirtazapine No 1{table QD Mirtazapin 30 MG 30 MG t_at_be e 30 MG dtime} metFORMIN metFORMIN No 1{table QD metFORMIN HCl 1000 MG HCl 1000 MG t_with_ HCl 1000 a_meal} MG amLODIPine amLODIPine No amLODIPine Besy-Benaze Besy-Benaze Besy-Benaz pril HCl pril HCl epril HCl 2.5-10 MG 2.5-10 MG 2.5-10 MG Albuterol Albuterol No 6xD Albuterol Sulfate HFA Sulfate HFA Sulfate 108 (90 108 (90 HFA 108 Base) Base) (90 Base) MCG/ACT MCG/ACT MCG/ACT Alcohol Alcohol No Alcohol Prep Pads Prep Pads Prep Pads Symbicort Symbicort No 2{puffs BID Symbicort 160-4.5 160-4.5 } 160-4.5 MCG/ACT MCG/ACT MCG/ACT Lancets Lancets No Lancets Super Thin Super Thin Super Thin n/s n/s n/s Ferrous Ferrous No 1{table QD Ferrous Sulfate 325 Sulfate 325 t} Sulfate (65 Fe) MG (65 Fe) MG 325 (65 Fe) MG Mirtazapine Mirtazapine No 1{table QD Mirtazapin 30 30 t_at_be e 30 dtime} blood blood No QD blood glucose glucose glucose test strip test strip test strip n/s n/s n/s Budesonide- Budesonide- No Budesonide Formoterol Formoterol -Formotero Fumarate Fumarate l Fumarate 160-4.5 160-4.5 160-4.5 MCG/ACT MCG/ACT MCG/ACT Albuterol Albuterol No 6xD Albuterol Sulfate HFA Sulfate HFA Sulfate 108 (90 108 (90 HFA 108 Base) Base) (90 Base) MCG/ACT MCG/ACT MCG/ACT Combivent Combivent No Combivent Respimat Respimat Respimat 20-100 20-100 20-100 MCG/ACT MCG/ACT MCG/ACT Mirtazapine Mirtazapine No 1{table QD Mirtazapin 15 15 t_at_be e 15 dtime} Mirtazapine Mirtazapine No 1{table QD Mirtazapin 30 MG 30 MG t_at_be e 30 MG dtime} metFORMIN metFORMIN No 1{table QD metFORMIN HCl 1000 MG HCl 1000 MG t_with_ HCl 1000 a_meal} MG amLODIPine amLODIPine No amLODIPine Besy-Benaze Besy-Benaze Besy-Benaz pril HCl pril HCl epril HCl 2.5-10 MG 2.5-10 MG 2.5-10 MG Mirtazapine Mirtazapine No 1{table QD Mirtazapin 30 30 t_at_be e 30 dtime} Alcohol Alcohol No Alcohol Prep Pads Prep Pads Prep Pads Gabapentin Gabapentin No 1{capsu TID Gabapentin 300 MG 300 MG le} 300 MG Lancets Lancets No Lancets Super Thin Super Thin Super Thin n/s n/s n/s Ferrous Ferrous No 1{table QD Ferrous Sulfate 325 Sulfate 325 t} Sulfate (65 Fe) MG (65 Fe) MG 325 (65 Fe) MG Atorvastati Atorvastati No 1{table QD Atorvastat n Calcium n Calcium t} in Calcium 10 MG 10 MG 10 MG blood blood No QD blood glucose glucose glucose test strip test strip test strip n/s n/s n/s Budesonide- Budesonide- No Budesonide Formoterol Formoterol -Formotero Fumarate Fumarate l Fumarate 160-4.5 160-4.5 160-4.5 MCG/ACT MCG/ACT MCG/ACT Albuterol Albuterol No 6xD Albuterol Sulfate HFA Sulfate HFA Sulfate 108 (90 108 (90 HFA 108 Base) Base) (90 Base) MCG/ACT MCG/ACT MCG/ACT Combivent Combivent No Combivent Respimat Respimat Respimat 20-100 20-100 20-100 MCG/ACT MCG/ACT MCG/ACT Mirtazapine Mirtazapine No 1{table QD Mirtazapin 15 15 t_at_be e 15 dtime} Mirtazapine Mirtazapine No 1{table QD Mirtazapin 30 MG 30 MG t_at_be e 30 MG dtime} metFORMIN metFORMIN No 1{table QD metFORMIN HCl 1000 MG HCl 1000 MG t_with_ HCl 1000 a_meal} MG amLODIPine amLODIPine No amLODIPine Besy-Benaze Besy-Benaze Besy-Benaz pril HCl pril HCl epril HCl 2.5-10 MG 2.5-10 MG 2.5-10 MG Mirtazapine Mirtazapine No 1{table QD Mirtazapin 30 30 t_at_be e 30 dtime} Alcohol Alcohol No Alcohol Prep Pads Prep Pads Prep Pads Gabapentin Gabapentin No 1{capsu TID Gabapentin 300 MG 300 MG le} 300 MG Lancets Lancets No Lancets Super Thin Super Thin Super Thin n/s n/s n/s Ferrous Ferrous No 1{table QD Ferrous Sulfate 325 Sulfate 325 t} Sulfate (65 Fe) MG (65 Fe) MG 325 (65 Fe) MG Atorvastati Atorvastati No 1{table QD Atorvastat n Calcium n Calcium t} in Calcium 10 MG 10 MG 10 MG blood blood No QD blood glucose glucose glucose test strip test strip test strip n/s n/s n/s Mirtazapine Mirtazapine No 1{table QD Mirtazapin 30 MG 30 MG t_at_be e 30 MG dtime} Lancets Lancets No Lancets Super Thin Super Thin Super Thin n/s n/s n/s Mirtazapine Mirtazapine No 1{table QD Mirtazapin 15 15 t_at_be e 15 dtime} Combivent Combivent No Combivent Respimat Respimat Respimat 20-100 20-100 20-100 MCG/ACT MCG/ACT MCG/ACT Atorvastati Atorvastati No 1{table QD Atorvastat n Calcium n Calcium t} in Calcium 10 MG 10 MG 10 MG metFORMIN metFORMIN No 1{table QD metFORMIN HCl 1000 MG HCl 1000 MG t_with_ HCl 1000 a_meal} MG Ferrous Ferrous No 1{table QD Ferrous Sulfate 325 Sulfate 325 t} Sulfate (65 Fe) MG (65 Fe) MG 325 (65 Fe) MG Albuterol Albuterol No 6xD Albuterol Sulfate HFA Sulfate HFA Sulfate 108 (90 108 (90 HFA 108 Base) Base) (90 Base) MCG/ACT MCG/ACT MCG/ACT Symbicort Symbicort No 2{puffs BID Symbicort 160-4.5 160-4.5 } 160-4.5 MCG/ACT MCG/ACT MCG/ACT Budesonide- Budesonide- No Budesonide Formoterol Formoterol -Formotero Fumarate Fumarate l Fumarate 160-4.5 160-4.5 160-4.5 MCG/ACT MCG/ACT MCG/ACT blood blood No QD blood glucose glucose glucose test strip test strip test strip n/s n/s n/s Mirtazapine Mirtazapine No 1{table QD Mirtazapin 30 30 t_at_be e 30 dtime} Combivent Combivent No Combivent Respimat Respimat Respimat 20-100 20-100 20-100 MCG/ACT MCG/ACT MCG/ACT amLODIPine amLODIPine No amLODIPine Besy-Benaze Besy-Benaze Besy-Benaz pril HCl pril HCl epril HCl 2.5-10 MG 2.5-10 MG 2.5-10 MG Gabapentin Gabapentin No Gabapentin 300 MG 300 MG 300 MG Alcohol Alcohol No Alcohol Prep Pads Prep Pads Prep Pads amLODIPine amLODIPine No amLODIPine Besy-Benaze Besy-Benaze Besy-Benaz pril HCl pril HCl epril HCl 2.5-10 MG 2.5-10 MG 2.5-10 MG Ferrous Ferrous No 1{table QD Ferrous Sulfate 325 Sulfate 325 t} Sulfate (65 Fe) MG (65 Fe) MG 325 (65 Fe) MG Combivent Combivent No Combivent Respimat Respimat Respimat 20-100 20-100 20-100 MCG/ACT MCG/ACT MCG/ACT Combivent Combivent No Combivent Respimat Respimat Respimat 20-100 20-100 20-100 MCG/ACT MCG/ACT MCG/ACT Albuterol Albuterol No 6xD Albuterol Sulfate HFA Sulfate HFA Sulfate 108 (90 108 (90 HFA 108 Base) Base) (90 Base) MCG/ACT MCG/ACT MCG/ACT blood blood No QD blood glucose glucose glucose test strip test strip test strip n/s n/s n/s Alcohol Alcohol No Alcohol Prep Pads Prep Pads Prep Pads Gabapentin Gabapentin No Gabapentin 300 MG 300 MG 300 MG Lancets Lancets No Lancets Super Thin Super Thin Super Thin n/s n/s n/s metFORMIN metFORMIN No 1{table QD metFORMIN HCl 1000 MG HCl 1000 MG t_with_ HCl 1000 a_meal} MG Mirtazapine Mirtazapine No 1{table QD Mirtazapin 30 MG 30 MG t_at_be e 30 MG dtime} Symbicort Symbicort No 2{puffs BID Symbicort 160-4.5 160-4.5 } 160-4.5 MCG/ACT MCG/ACT MCG/ACT Budesonide- Budesonide- No Budesonide Formoterol Formoterol -Formotero Fumarate Fumarate l Fumarate 160-4.5 160-4.5 160-4.5 MCG/ACT MCG/ACT MCG/ACT Atorvastati Atorvastati No 1{table QD Atorvastat n Calcium n Calcium t} in Calcium 10 MG 10 MG 10 MG metFORMIN metFORMIN No 1{table QD metFORMIN HCl 1000 MG HCl 1000 MG t_with_ HCl 1000 a_meal} MG amLODIPine amLODIPine No QD amLODIPine Besy-Benaze Besy-Benaze Besy-Benaz pril HCl pril HCl epril HCl 2.5-10 MG 2.5-10 MG 2.5-10 MG Mirtazapine Mirtazapine No 1{table QD Mirtazapin 15 15 t_at_be e 15 dtime} blood blood No QD blood glucose glucose glucose test strip test strip test strip n/s n/s n/s Combivent Combivent No Combivent Respimat Respimat Respimat 20-100 20-100 20-100 MCG/ACT MCG/ACT MCG/ACT Mirtazapine Mirtazapine No 1{table QD Mirtazapin 30 MG 30 MG t_at_be e 30 MG dtime} Ferrous Ferrous No 1{table QD Ferrous Sulfate 325 Sulfate 325 t} Sulfate (65 Fe) MG (65 Fe) MG 325 (65 Fe) MG Mirtazapine Mirtazapine No 1{table QD Mirtazapin 30 30 t_at_be e 30 dtime} Lancets Lancets No Lancets Super Thin Super Thin Super Thin n/s n/s n/s amLODIPine amLODIPine No QD amLODIPine Besy-Benaze Besy-Benaze Besy-Benaz pril HCl pril HCl epril HCl 2.5-10 MG 2.5-10 MG 2.5-10 MG Atorvastati Atorvastati No 1{table QD Atorvastat n Calcium n Calcium t} in Calcium 10 MG 10 MG 10 MG Albuterol Albuterol No 6xD Albuterol Sulfate HFA Sulfate HFA Sulfate 108 (90 108 (90 HFA 108 Base) Base) (90 Base) MCG/ACT MCG/ACT MCG/ACT Gabapentin Gabapentin No Gabapentin 300 MG 300 MG 300 MG Alcohol Alcohol No Alcohol Prep Pads Prep Pads Prep Pads Albuterol Albuterol No 6xD Albuterol Sulfate HFA Sulfate HFA Sulfate 108 (90 108 (90 HFA 108 Base) Base) (90 Base) MCG/ACT MCG/ACT MCG/ACT Alcohol Alcohol No Alcohol Prep Pads Prep Pads Prep Pads Ferrous Ferrous No 1{table QD Ferrous Sulfate 325 Sulfate 325 t} Sulfate (65 Fe) MG (65 Fe) MG 325 (65 Fe) MG Mirtazapine Mirtazapine No 1{table QD Mirtazapin 30 30 t_at_be e 30 dtime} amLODIPine amLODIPine No QD amLODIPine Besy-Benaze Besy-Benaze Besy-Benaz pril HCl pril HCl epril HCl 2.5-10 MG 2.5-10 MG 2.5-10 MG amLODIPine amLODIPine No QD amLODIPine Besy-Benaze Besy-Benaze Besy-Benaz pril HCl pril HCl epril HCl 2.5-10 MG 2.5-10 MG 2.5-10 MG metFORMIN metFORMIN No 1{table QD metFORMIN HCl 1000 MG HCl 1000 MG t_with_ HCl 1000 a_meal} MG blood blood No QD blood glucose glucose glucose test strip test strip test strip n/s n/s n/s Mirtazapine Mirtazapine No 1{table QD Mirtazapin 30 MG 30 MG t_at_be e 30 MG dtime} Mirtazapine Mirtazapine No 1{table QD Mirtazapin 15 15 t_at_be e 15 dtime} Lancets Lancets No Lancets Super Thin Super Thin Super Thin n/s n/s n/s Symbicort Symbicort No 2{puffs BID Symbicort 160-4.5 160-4.5 } 160-4.5 MCG/ACT MCG/ACT MCG/ACT Gabapentin Gabapentin No Gabapentin 300 MG 300 MG 300 MG Atorvastati Atorvastati No 1{table QD Atorvastat n Calcium n Calcium t} in Calcium 10 MG 10 MG 10 MG Combivent Combivent No QID Combivent Respimat Respimat Respimat 20-100 20-100 20-100 MCG/ACT MCG/ACT MCG/ACT Mirtazapine Mirtazapine No 1{table QD Mirtazapin 30 MG 30 MG t_at_be e 30 MG dtime} Mirtazapine Mirtazapine No 1{table QD Mirtazapin 15 15 t_at_be e 15 dtime} Combivent Combivent No Combivent Respimat Respimat Respimat 20-100 20-100 20-100 MCG/ACT MCG/ACT MCG/ACT Symbicort Symbicort No 2{puffs BID Symbicort 160-4.5 160-4.5 11-12 } 160-4.5 MCG/ACT MCG/ACT 00:00 MCG/ACT :00 Symbicort Symbicort No 2{puffs BID Symbicort 160-4.5 160-4.5 11-12 } 160-4.5 MCG/ACT MCG/ACT 00:00 MCG/ACT :00 Symbicort Symbicort No 2{puffs BID Symbicort 160-4.5 160-4.5 11-12 } 160-4.5 MCG/ACT MCG/ACT 00:00 MCG/ACT :00 Vital Signs Vital Name Observation Time Observation Value Comments Source height 2021-11-24 10:20:00 72.00 [in_i] [facility] weight 2021-11-24 10:20:00 219.8 [lb_av] [facility] temperature 2021-11-24 10:20:00 97.3 [degF] [facility] bmi 2021-11-24 10:20:00 29.81 kg/m2 [facility] oximetry 2021-11-24 10:20:00 100 % [facility] respiratory rate 2021-11-24 10:20:00 18 /min Comm on [facility] blood pressure 2021-11-24 10:20:00 150 mm[Hg] [facility] - systolic [facility] blood pressure 2021-11-24 10:20:00 82 mm[Hg] [facility] - diastolic [facility] height 2021-09-23 08:20:00 72.00 [in_i] [facility] weight 2021-09-23 08:20:00 215.8 [lb_av] Common [facility] temperature 2021-09-23 08:20:00 97.0 [degF] Common [facility] bmi 2021-09-23 08:20:00 29.26 kg/m2 Common [facility] oximetry 2021-09-23 08:20:00 97 % Common [facility] respiratory rate 2021-09-23 08:20:00 18 /min Comm on [facility] blood pressure 2021-09-23 08:20:00 138 mm[Hg] [facility] - systolic [facility] blood pressure 2021-09-23 08:20:00 80 mm[Hg] [facility] - diastolic [facility] height 2021-09-23 07:40:00 72.00 [in_i] Common [facility] weight 2021-09-23 07:40:00 215.8 [lb_av] Common [facility] temperature 2021-09-23 07:40:00 97.0 [degF] Common [facility] bmi 2021-09-23 07:40:00 29.26 kg/m2 [facility] oximetry 2021-09-23 07:40:00 97 % Common [facility] blood pressure 2021-09-23 07:40:00 138 mm[Hg] [facility] - systolic [facility] blood pressure 2021-09-23 07:40:00 80 mm[Hg] Common [facility] diastolic [facility] Procedures This patient has no known procedures. Encounters Start End Encounter Admission Attending Care Care Encounter Source Date/Time Date/Time Type Type Clinicians Facility Department [id number] 09:20:00 [facility] [id number] [facility] 2022[facility]11-[address] [facility] [id number] Common 16[facility]52:00 [facility] [id number] [place] [facility] 2022-08-24 Outpatient Mary, STLMLC STLMLC [id number] Common 09:39:00 Jen [id number] [facility] 2022-08-13 Outpatient SOTELO, Na STLMLC STLMLC [id number] 2 Common 15:10:00 [id number] [facility] 2022-04-13 Outpatient Sotelo, Na STLMLC STLMLC [id number] 2 Common 16:07:00 [facility] 2022-04-06 Outpatient Sotelo, Na STLMLC STLMLC [id number] 2 Common 09:34:00 [facility] 2022-02-18 Outpatient Sotelo, Na STLMLC STLMLC [id number] 2 Common 10:50:00 [facility] 2022-01-16 Outpatient Sotelo, Na STLMLC STLMLC [id number] 2 Common 10:51:00 [facility] 2022-01-07 Outpatient Sotelo, Na STLMLC STLMLC [id number] 2 Common 08:26:01 [facility] 2021-12-18 Outpatient Sotelo, Na STLMLC STLMLC [id number] 2 Common 11:05:00 [facility] 2021-11-20 Outpatient Sotelo, Na STLMLC STLMLC [id number] 2 Common 11:02:00 [facility] 2021-09-23 Outpatient Sotelo, Na STLMLC STLMLC [id number] 2 Common 08:12:01 [facility] 2021-09-19 Outpatient Sotelo, Na STLMLC STLMLC [id number] 2 Common 09:03:01 [facility] 2021-09-10 Outpatient Sotelo, Na STLMLC STLMLC [id number] 2 Common 16:27:01 [facility] 2021-08-15 Outpatient Sotelo, Na STLMLC STLMLC [id number] 2 Common 13:30:01 [facility] 2021-08-06 Outpatient Sotelo, Na STLMLC STLMLC [id number] 2 Common 13:39:32 [id number] [facility] 2021-08-06 Outpatient Sotelo, Na STLMLC STLMLC [id number] 2 Common 13:38:05 [id number] [facility] 2021-08-06 Outpatient Sotelo, Na STLMLC STLMLC [id number] 2 Common 13:25:43 [id number] [facility] 2021-08-06 Outpatient Sotelo, Na STLMLC STLMLC [id number] 2 Common 11:56:05 [id number] [facility] 2021-08-06 Outpatient Sotelo, Na STLMLC STLMLC [id number] 2 Common 11:45:53 [id number] [facility] 2021-08-06 Outpatient Sotelo, Na STLMLC STLMLC [id number] 2 Common 11:35:09 [id number] [facility] 2021-08-06 Outpatient Sotelo, Na STLMLC STLMLC [id number] 2 Common 11:31:41 [id number] [facility] 2021-08-06 Outpatient Sotelo, Na STLMLC STLMLC [id number] 2 Common 11:19:52 [id number] [facility] 2021-08-06 Outpatient Sotelo, Na STLMLC STLMLC [id number] 2 Common 11:16:52 [id number] [facility] 2021-08-06 Outpatient Sotelo, Na STLMLC STLMLC [id number] 2 Common 11:14:34 [id number] [facility] 2022-08-24 2022-08-24 (TEL) STLMLC STLMLC [id number] Co mmon 00:00:00 00:00:00 [facility] 2022-07-30 2022-07-30 (TEL) STLMLC STLMLC [id number] Co mmon 00:00:00 00:00:00 [facility] 2022-07-27 2022-07-27 (TEL) STLMLC STLMLC [id number] Co mmon 00:00:00 00:00:00 [facility] 2022-04-24 2022-04-24 (TEL) STLMLC STLMLC [id number] Co mmon 00:00:00 00:00:00 [facility] 2022-04-15 2022-04-15 OL DIG E/M STLMLC STLMLC [id number] Common 00:00:00 00:00:00 SVC 21+ [facility] 2022-04-03 2022-04-03 (TEL) STLMLC STLMLC [id number] Co mmon 00:00:00 00:00:00 [facility] 2022-03-24 2022-03-24 (TEL) STLMLC STLMLC [id number] Co mmon 00:00:00 00:00:00 [facility] 2021-11-24 2021-11-24 OFFICE STLMLC STLMLC [id number] Co mmon 00:00:00 00:00:00 VISIT EST Spir it PT LEVEL 3 [facility] 2021-09-23 2021-09-23 OFFICE STLMLC STLMLC [id number] Co mmon 00:00:00 00:00:00 VISIT EST Spir it PT LEVEL 3 [facility] 2021-09-23 2021-09-23 SUB ANNUAL STLMLC STLMLC [id number] Common 00:00:00 00:00:00 MCR [facility] VISIT [facility] 2021-08-12 2021-08-12 (TEL) STLMLC STLMLC [id number] Co mmon 00:00:00 00:00:00 [facility] 2021-02-27 2021-02-27 Outpatient STLMLC STLMLC [id number] Common 00:00:00 00:00:00 [facility] 2020-12-26 2020-12-26 Outpatient STLMLC STLMLC [id number] Common 00:00:00 00:00:00 [facility] 2020-11-29 2020-11-29 Outpatient STLMLC STLMLC [id number] Common 00:00:00 00:00:00 [facility] 2020-10-26 2020-10-26 Outpatient DMG DMG [id number] [facility] 06:01:00 06:01:00 [facility] 2020-10-21 2020-10-21 Outpatient DMG DM [id number] [facility] 08:00:00 08:00:00 [facility] 2020-07-03 2020-07-03 Outpatient STLMLC STLMLC [id number] Common 00:00:00 00:00:00 [facility] 2020-02-26 2020-02-26 [facility] [id number] Common 16:13:00 16:13:[address] [facility] 2020-02-26 2020-02-26 [facility] [id number] Common 13:40:00 13:40:[address] [facility] 2020-01-16 2020-01-16 [facility] [id number] Common 13:06:00 13:06:[address] [facility] 2019-11-29 2019-11-29 Outpatient GUU_SHENG_Y MEHOP MEHOP [id number] [place] 04:27:00 04:27:00 AW [id number] [facility] 2019-11-28 2019-11-28 Outpatient GUU_SHENG_Y MEHOP MEHOP [id number] [place] 01:05:00 01:05:00 AW [id number] [facility] 2019-11-27 2019-11-27 [facility] [id number] Common 12:04:00 12:04:[address] [facility] 2019-11-24 2019-11-24 Outpatient GUU_SHENG_Y MEHOP MEHOP [id number] [place] 11:38:00 11:38:00 AW [id number] [facility] 2019-11-24 2019-11-24 Outpatient GUU_SHENG_Y MEHOP MEHOP [id number] [place] 11:38:00 11:38:00 AW [id number] [facility] 2019-11-23 2019-11-23 Outpatient GUU_SHENG_Y MEHOP MEHOP [id number] [place] 11:10:00 11:10:00 AW [id number] [facility] 2019-11-20 2019-11-20 [facility] [id number] Common 16:57:00 16:57:[address] [facility] 2019-09-15 2019-09-15 [facility] [id number] Common 16:25:00 16:25:[address] [facility] 2019-09-07 2019-09-07 [facility] [id number] Common 10:40:00 10:40:[address] [facility] 2019-08-25 2019-08-25 [facility] [id number] Common 11:31:00 11:31:[address] [facility] 2019-02-07 2019-02-07 [facility] [id number] Common 09:23:00 09:23:[address] [facility] 2019-01-19 2019-01-19 [facility] [id number] Common 16:41:00 16:41:[address] [facility] 2019-01-10 2019-01-10 [facility] [id number] Common 14:20:00 14:20:[address] [facility] 2018-12-29 2018-12-29 [facility] [id number] Common 11:04:00 11:04:[address] [facility] 2018-08-25 2018-08-25 [facility] [id number] Common 09:30:00 09:30:[address] [facility] 2018-07-07 2018-07-07 [facility] [id number] Common 14:56:00 14:56:[address] [facility] 2018-06-22 2018-06-22 [facility] [id number] Common 08:45:00 08:45:[address] [facility] 2018-03-23 2018-03-23 [facility] [id number] Common 08:26:00 08:26:[address] [facility] 2018-03-22 2018-03-22 [facility] [id number] Common 08:13:00 08:13:[address] [facility] 2018-03-21 2018-03-21 [facility] [id number] Common 09:30:00 09:30:[address] [facility] 2017-12-28 2017-12-28 [facility] [id number] Common 10:38:00 10:38:[address] [facility] 2017-11-29 2017-11-29 [facility] [id number] Common 11:00:00 11:00:[address] [facility] Results This patient has no known results.
[2023-05-09] MEDS ORDERED: ONDANSETRON 4 MG/2 ML VIAL ONE (00:26)
[2023-05-09] MEDS ORDERED: ACETAMINOPHEN 500 MG TAB ONE (00:26)
[2023-05-09] MEDS ORDERED: NA CHLORIDE 0.9% 1,000 ML ONE (00:27)
[2023-05-09] MEDS ORDERED: FAMOTIDINE 20 MG/2 ML VIAL IV ONE (00:27)
[2023-05-09 00:47] LABS: Absolute Lymphocytes (CBC) 0.5 K/uL (0.7-4.9); Hematocrit 38.6 % (39.6-49.0); MCV 83.6 fL (80-100); Platelets 213 thou/uL (152-406); RBC Red Blood Cell Count 4.61 M/uL (4.33-5.43)
[2023-05-09 00:56] LABS: Protime INR 1.2
[2023-05-09 01:04] LABS: AST/SGOT 12 U/L (15-37); Albumin 3.5 g/dL (3.4-5.0); Alkaline Phosphatase 96 U/L (45-117); BUN Blood Urea Nitrogen 11 mg/dL (7-18); Bicarbonate 29 mEq/L (21-32); Bilirubin Total 0.5 mg/dL (0.2-1.0); Glomerular Filtration Rate 59 ml/min (=/>90); Glucose Level 146 mg/dL (74-106); Potassium 3.6 mEq/L (3.5-5.1); Sodium Level 133 mEq/L (136-145)
[2023-05-09 01:15] LABS: ALT/SGPT < 10 U/L (16-61)
[2023-05-09 01:29] LABS: Specific Gravity 1.016 (1.005-1.030); Urine Bacteria None Seen /HPF (<20); Urine Bilirubin NEGATIVE (Negative); Urine Blood Negative (Negative); Urine Clarity Clear (Clear); Urine Color Light-Yellow (Yellow); Urine Glucose NEGATIVE (Negative); Urine Protein 1+ (Negative); Urine RBC <5 /HPF (None Seen); Urine Urobilinogen 1+ (Normal)
[2023-05-09] MEDS ORDERED: ALBUTEROL 2.5 MG/3 ML NEB SOL ONE (02:06)
[2023-05-09] MEDS ORDERED: IPRATROPIUM BROM 0.5MG/2.5ML ONE (02:07)
[2023-05-09] MEDS ORDERED: Levofloxacin 750mg IV 750 MG/150 ML BAG IV ONE (02:49)
[2023-05-09] MEDS ORDERED: METHYLPREDNISOLONE 125 MG INJ ONE (02:49)
[2023-05-09] MEDS ORDERED: HYDRALAZINE HCL 20 MG/ML VIAL ONE (02:49)
--- NOTE | 2023-05-09 03:02 | EDPHYS ---
Physician Documentation [facility] Name: Guido Allan Age: 67 yrs Sex: Male : 1955 Arrival Date: 05/08/2023 Time: 23:16 Bed 3 Private MD: ED Physician Ray Montiel HPI: 05/09 00:00 This 67 yrs old Black Male presents to ER via Wheelchair with complaints of Cough, cp Painful Cough. 00:00 The patient or guardian reports cough, with productive sputum. Onset: The cp symptoms/episode began/occurred 3 day(s) ago. Associated signs and symptoms: Pertinent positives: chest pain, with cough, fever, vomiting, Pertinent negatives: diarrhea. Historical: - Allergies: 05/08 23:45 NKDA; iw - PMHx: 23:45 Arthritis; COPD; COPD; Hyperlipidemia; Hypertension; Prostate Cancer; iw - Immunization history:: Client reports receiving the 2nd dose of the Covid vaccine. - Social history:: Smoking status: Patient reports the use of cigarette tobacco products. ROS: 05/09 00:05 Constitutional: Positive for body aches, chills, fever, poor PO intake, cp 00:05 Cardiovascular: Positive for chest pain, with cough, cp 00:05 Respiratory: Positive for cough, shortness of breath, 00:05 Abdomen/GI: Positive for nausea and vomiting, 00:05 Eyes: Negative for injury, pain, redness, and discharge, cp 00:05 Neuro: Negative for altered mental status, syncope, cp 00:05 All other systems are negative, Exam: 00:10 Constitutional: The patient appears alert, awake, non-diaphoretic, non-toxic, well cp developed, well nourished, in obvious distress, mildly distressed, obviously ill, uncomfortable, 00:10 Head/Face: Normocephalic, atraumatic. cp 00:10 Eyes: Periorbital structures: appear normal, Conjunctiva: normal, no exudate, no injection, Sclera: no appreciated abnormality, Lids and lashes: appear normal, bilaterally, 00:10 ENT: External ear(s): are unremarkable, Nose: is normal, Mouth: Lips: moist, Oral mucosa: pink and intact, moist, Posterior pharynx: Airway: no evidence of obstruction, patent, 00:10 Neck: ROM/movement: is normal, is supple, no meningismus, no nuchal rigidity, 00:10 Chest/axilla: Inspection: normal, Palpation: is normal, no crepitus, no tenderness, 00:10 Cardiovascular: Rate: tachycardic, Rhythm: regular, Edema: is not appreciated, JVD: is not appreciated, 00:10 Respiratory: mild respiratory distress is noted, Respirations: labored breathing, that is mild, Breath sounds: decreased breath sounds, that are moderate, throughout, stridor, is not appreciated, + upper airway congestion. 00:10 Abdomen/GI: Inspection: abdomen appears normal, Palpation: soft, in all quadrants, mild abdominal tenderness, in the epigastric area, rebound tenderness, is not appreciated, involuntary guarding, is not appreciated, 00:10 Neuro: Orientation: to person, place \T\ time. Mentation: is normal, Motor: moves all fours, strength is normal, Sensation: is normal, 00:25 ECG was reviewed by the Attending Physician. cp Vital Signs: 05/08 23:43 Pulse 111; Resp 20; Temp 102.1; Pulse Ox 97% on R/A; Weight 104.33 kg; Height 6 ft. 0 iw in. ; Pain 02/18; 05/09 00:00 BP 206 / 91; Pulse 110; Resp 40; Pulse Ox 90% on R/A; km8 00:15 BP 192 / 83; Pulse 110; Resp 35; Pulse Ox 90% on R/A; km8 01:55 BP 207 / 91; Pulse 109; Resp 33; Pulse Ox 95% on 2 lpm NC; lg3 02:45 BP 170 / 60; Pulse 109; Resp 19 S; Temp 100(O); Pulse Ox 92% on R/A; lg3 03:30 BP 149 / 50; Pulse 109; Resp 20 S; Pulse Ox 93% on 2 lpm NC; km8 03:45 BP 160 / 65; Pulse 118; Resp 20 S; Pulse Ox 91% on 2 lpm NC; km8 05/08 23:43 Body Mass Index 31.19 (104.33 kg, 182.88 cm) iw 05/08 23:43 Pain Scale: Adult iw MDM: 05/08 23:51 Patient medically screened. cp 05/09 03:45 Differential Diagnosis: Other Pneumonia, pneumothorax, pulm embolism. Data reviewed: rt vital signs, nurses notes, lab test result(s), EKG, radiologic studies. Consideration of Admission/Observation Patient was admitted/placed on observation. Management of patient was discussed with the following: Hospitalist: . I considered the following discharge prescriptions or medication management in the emergency department Medications were administered in the Emergency Department. See MAR. Care significantly affected by the following chronic conditions: Chronic Obstructive Pulmonary Disease. Counseling: I had a detailed discussion with the patient and/or guardian regarding the historical points, exam findings, and any diagnostic results supporting the discharge/admit diagnosis, lab results, radiology results, the need to transfer to another facility. 05/08 23:50 Order name: Blood Culture Adult (2) cp 05/08 23:50 Order name: CBC with Diff; Complete Time: 00:54 05/09 00:55 Interpretation: Normal except: HGB 13.4; HCT 38.6; LILIBETH% 82.5; LYM% 6.0; LYMA 0.5. 05/08 23:50 Order name: CMP; Complete Time: 01:32 05/09 01:32 Interpretation: Normal except: NA 133; GLUC 146; CRE 1.32; GFR 59; AST 12; ALT < 10; cp GLOB 4.5; A/G 0.8. 05/08 23:50 Order name: Lactate w/ 2H reflex if indic.; Complete Time: 01:32 cp 05/09 01:33 Interpretation: Reviewed. 05/08 23:50 Order name: Protime (+inr); Complete Time: 01:32 05/09 01:33 Interpretation: Reviewed. 05/08 23:50 Order name: Ptt, Activated; Complete Time: 01:32 cp 05/08 23:50 Order name: Urinalysis w/ reflexes; Complete Time: 01:32 05/09 01:33 Interpretation: Normal except: UPROT 1+; UUROB 1+. 05/08 23:50 Order name: COVID-19 SARS RT PCR; Complete Time: 00:54 cp 05/09 00:55 Interpretation: Reviewed. 05/08 23:50 Order name: Influenza Screen (a \T\ B); Complete Time: 00:54 05/09 00:55 Interpretation: Reviewed. 05/09 01:13 Order name: Glucose, Ancillary Testing; Complete Time: 01:32 EDMS 05/09 00:23 Order name: XRAY Chest (1 view) 05/09 00:56 Order name: CT Chest For PE Angio cp 05/08 23:50 Order name: EKG; Complete Time: 23:51 cp 05/08 23:50 Order name: Accucheck; Complete Time: 01:03 cp 05/08 23:50 Order name: Cardiac monitoring; Complete Time: 00:21 cp 05/08 23:50 Order name: EKG - Nurse/Tech; Complete Time: 00:21 cp 05/08 23:50 Order name: IV Saline Lock - Large Bore; Complete Time: 00:40 cp 05/08 23:50 Order name: Labs collected and sent; Complete Time: 00:40 05/08 23:50 Order name: O2 Per Protocol; Complete Time: 00:03 cp 05/08 23:50 Order name: O2 Sat Monitoring; Complete Time: 00:03 cp 05/08 23:50 Order name: Vital Signs; Complete Time: 00:03 cp EC:25 Rate is 111 beats/min. Rhythm is regular. ND interval is normal. QRS interval is cp normal. QT interval is normal. Interpreted by me. Reviewed by me. Administered Medications: 00:55 Drug: Acetaminophen PO 1000 mg PO once Route: PO; 04:40 Follow up: Response: No adverse reaction 00:55 Drug: NS 0.9% IV 500 ml IV at bolus once Route: IV; Rate: bolus; Site: left forearm; 02:06 Follow up: IV Status: Completed infusion; IV Intake: 500ml 00:55 Drug: Ondansetron IVP 4 mg IVP once; over 2 minutes Route: IVP; Site: left forearm; 8 02:05 Follow up: Response: No adverse reaction 00:55 Drug: Famotidine IVP 20 mg IVP once; dilute with 10 mL 0.9% NaCl; give over 2 minutes Route: IVP; Site: left forearm; 02:05 Follow up: Response: No adverse reaction 00:55 Drug: NS 0.9% IV 500 ml IV at 125 ml/hr continuous Route: IV; Rate: 125 ml/hr; Site: [facility] left forearm; 04:22 Follow up: IV Status: Completed infusion; IV Intake: 500ml 02:05 Drug: DuoNeb Nebulize (2.5 mg - 0.5 mg) 3 ml Nebulizer once Route: Nebulizer; km8 04:21 Follow up: Response: No adverse reaction; Wheezing diminished 02:46 Drug: levofloxacin IVPB 750 mg 150 ml IVPB once over 90 mins Volume: 150 ml; Route: lg3 IVPB; Infused Over: 90 mins; Site: left forearm; 04:38 Follow up: Response: No adverse reaction; IV Status: Completed infusion; IV Intake: km8 150ml 02:47 Drug: hydrALAZINE IVP 10 mg IVP once Route: IVP; Site: left forearm; lg3 04:21 Follow up: Response: No adverse reaction; Blood pressure is lowered 02:47 Drug: MethylPrednisoLONE IVP 125 mg IVP once Route: IVP; Site: left forearm; lg3 04:21 Follow up: Response: No adverse reaction Disposition: 03:44 Co-signature as Attending Physician, Ray Montiel MD I reviewed the patient's care rt provided by the Advanced Practice Provider and agree with the diagnosis and treatment plan. I discussed the case with accepting physician at [facility]. Disposition Summary: 05/09/23 03:01 Transfer Ordered Notes: Transfer Location: [facility] cp Reason: Higher level of care cp Condition: Stable cp Problem: new cp Symptoms: have improved cp Accepting Physician: Doctor(05/09/23 04:39) km8 Diagnosis - COPD/ Chronic obstructive pulmonary disease with (acute) exacerbation cp - Pneumonia, unspecified organism cp - Hypoxemia cp - Hypertensive heart disease without heart failure cp Forms: - Medication Reconciliation Form cp - SBAR form cp Signatures: Dispatcher [employer] Anca Galvan RN RN iw Page, Corey, PA PA cp Jessica Cantrell RN RN lg3 Ray Montiel MD MD rt Lulú Lynn RN RN km8 Corrections: (The following items were deleted from the chart) 04:39 03:01 Doctor kalli km8
--- NOTE | 2023-05-09 03:02 | ER ---
Nurse's Notes [facility] Name: Guido Allan Age: 67 yrs Sex: Male : 1955 Arrival Date: 05/08/2023 Time: 23:16 Bed 3 Private MD: Diagnosis: COPD/ Chronic obstructive pulmonary disease with (acute) exacerbation;Pneumonia, unspecified organism;Hypoxemia;Hypertensive heart disease without heart failure Presentation: 05/08 23:43 Chief complaint: Patient states: fever , chills, cough X 3 days. Coronavirus screen: iw Client presents with at least one sign or symptom that may indicate coronavirus-19. Ebola Screen: Patient negative for fever greater than or equal to 101.5 degrees Fahrenheit, and additional compatible Ebola Virus Disease symptoms Patient denies exposure to infectious person. Patient denies travel to an Ebola-affected area in the 21 days before illness onset. No symptoms or risks identified at this time. Risk Assessment: Do you want to hurt yourself or someone else? Patient reports no desire to harm self or others. 23:43 Method Of Arrival: Wheelchair iw 23:45 Initial Sepsis Screen: Does the patient meet any 2 criteria? Temp <36.0*C (96.8*F)) or iw > 38.3*C (100.9*F). HR > 90 bpm. Does the patient have a suspected source of infection? Yes: Productive cough/pneumonia. Onset of symptoms was May 05, 2023. 23:45 Acuity: ALANA 2 iw Historical: - Allergies: 23:45 NKDA; iw - PMHx: 23:45 Arthritis; COPD; COPD; Hyperlipidemia; Hypertension; Prostate Cancer; iw - Immunization history:: Client reports receiving the 2nd dose of the Covid vaccine. - Social history:: Smoking status: Patient reports the use of cigarette tobacco products. Screenin/29 00:05 [facility] ED Fall Risk Assessment (Adult) History of falling in the last 3 months, km8 including since admission No falls in past 3 months (0 pts) Confusion or Disorientation No (0 pts) Intoxicated or Sedated No (0 pts) Impaired Gait No (0 pts) Mobility Assist Device Used No (0 pt) Altered Elimination No (0 pt) Score/Fall Risk Level 0 - 2 = Low Risk Oriented to surroundings, Maintained a safe environment, Educated pt \T\ family on fall prevention, incl call for assistance when getting out of bed, Assessed \T\ reinforced patient's understanding of fall precautions. Abuse screen: Denies threats or abuse. Denies injuries from another. Nutritional screening: No deficits noted. Tuberculosis screening: No symptoms or risk factors identified. Assessment: 00:05 General: Appears uncomfortable, Behavior is cooperative, appropriate for age, restless. km8 00:05 Pain: Complains of pain in chest Pain currently is 8 out of 10 on a pain scale. Quality km8 of pain is described as aching, sharp, when coughing Aggravated by coughing. Neuro: Christianson Agitation-Sedation Scale (RASS): 0 - Alert and Calm Level of Consciousness is awake, alert, obeys commands, Oriented to person, place, time, situation. Cardiovascular: Reports chest pain, shortness of breath, Capillary refill < 3 seconds Patient's skin is warm and dry. Rhythm is sinus tachycardia. Respiratory: Reports shortness of breath cough that is pain with cough Airway is patent Respiratory effort is even, labored, Respiratory pattern is tachypnea Breath sounds with rhonchi bilaterally. GI: No deficits noted. No signs and/or symptoms were reported involving the gastrointestinal system. : No deficits noted. No signs and/or symptoms were reported regarding the genitourinary system. EENT: No deficits noted. No signs and/or symptoms were reported regarding the EENT system. Derm: No deficits noted. No signs and/or symptoms reported regarding the dermatologic system. Skin is intact, is healthy with good turgor, Skin is dry, Skin is normal, Skin temperature is warm. Musculoskeletal: No deficits noted. No signs and/or symptoms reported regarding the musculoskeletal system. Range of motion: intact in all extremities. 01:54 Reassessment: Patient appears in no apparent distress at this time. No changes from lg3 previously documented assessment. Patient and/or family updated on plan of care and expected duration. Pain level reassessed. Patient is alert, oriented x 3, equal unlabored respirations, skin warm/dry/pink. Patient states symptoms have not improved. Vital Signs: 05/08 23:43 Pulse 111; Resp 20; Temp 102.1; Pulse Ox 97% on R/A; Weight 104.33 kg; Height 6 ft. 0 iw in. ; Pain 8/10; 05/09 00:00 BP 206 / 91; Pulse 110; Resp 40; Pulse Ox 90% on R/A; km8 00:15 BP 192 / 83; Pulse 110; Resp 35; Pulse Ox 90% on R/A; km8 01:55 BP 207 / 91; Pulse 109; Resp 33; Pulse Ox 95% on 2 lpm NC; lg3 02:45 BP 170 / 60; Pulse 109; Resp 19 S; Temp 100(O); Pulse Ox 92% on R/A; lg3 03:30 BP 149 / 50; Pulse 109; Resp 20 S; Pulse Ox 93% on 2 lpm NC; km8 03:45 BP 160 / 65; Pulse 118; Resp 20 S; Pulse Ox 91% on 2 lpm NC; km8 05/08 23:43 Body Mass Index 31.19 (104.33 kg, 182.88 cm) iw 05/08 23:43 Pain Scale: Adult iw ED Course: 05/08 23:21 Patient arrived in ED. kj1 23:35 Kendrick Doran PA is PHCP. cp 23:35 Ray Montiel MD is Attending Physician. cp 23:45 Arm band placed on. iw 23:46 Triage completed. iw 23:55 Lulú Lynn, CECILIA is Primary Nurse. km8 05/09 00:05 Patient has correct armband on for positive identification. Placed in gown. Bed in low km8 position. Call light in reach. Side rails up X2. Client placed on continuous cardiac and pulse oximetry monitoring. NIBP monitoring applied. air sampling and monitoring on. 00:05 COVID-19 SARS RT PCR Sent. km8 00:05 Influenza Screen (a \T\ B) Sent. km8 00:40 Blood Culture Adult (2) Sent. km8 00:40 CBC with Diff Sent. km8 00:40 CMP Sent. km8 00:40 Lactate w/ 2H reflex if indic. Sent. 8 00:40 Protime (+inr) Sent. 8 00:40 Ptt, Activated Sent. 8 00:40 Inserted saline lock: 20 gauge in left forearm, using aseptic technique. Blood km8 collected. 00:55 Urinalysis w/ reflexes Sent. km8 00:56 Oxygen administration via nasal cannula \T\ 2L/min. km8 01:14 XRAY Chest (1 view) In Process Unspecified. EDMS 01:52 CT Chest For PE Angio In Process Unspecified. EDMS 03:30 Initiated transfer with Sal at [facility]. rv1 03:[address] Marks to [facility] to Rm [id number]. rv1 04:07 Called Lulú with EMS for transfer truck, given 10-15 min ETA. rv1 04:20 Provided Education on: transfer process. km8 04:20 No provider procedures requiring assistance completed. km8 04:37 Patient transferred, IV remains in place. km8 Administered Medications: 00:55 Drug: Acetaminophen PO 1000 mg PO once Route: PO; km8 04:40 Follow up: Response: No adverse reaction 8 00:55 Drug: NS 0.9% IV 500 ml IV at bolus once Route: IV; Rate: bolus; Site: left forearm; km8 02:06 Follow up: IV Status: Completed infusion; IV Intake: 500ml 00:55 Drug: Ondansetron IVP 4 mg IVP once; over 2 minutes Route: IVP; Site: left forearm; 8 02:05 Follow up: Response: No adverse reaction 00:55 Drug: Famotidine IVP 20 mg IVP once; dilute with 10 mL 0.9% NaCl; give over 2 minutes km8 Route: IVP; Site: left forearm; 02:05 Follow up: Response: No adverse reaction 00:55 Drug: NS 0.9% IV 500 ml IV at 125 ml/hr continuous Route: IV; Rate: 125 ml/hr; Site: [facility] left forearm; 04:22 Follow up: IV Status: Completed infusion; IV Intake: 500ml 02:05 Drug: DuoNeb Nebulize (2.5 mg - 0.5 mg) 3 ml Nebulizer once Route: Nebulizer; km8 04:21 Follow up: Response: No adverse reaction; Wheezing diminished km8 02:46 Drug: levofloxacin IVPB 750 mg 150 ml IVPB once over 90 mins Volume: 150 ml; Route: lg3 IVPB; Infused Over: 90 mins; Site: left forearm; 04:38 Follow up: Response: No adverse reaction; IV Status: Completed infusion; IV Intake: km8 150ml 02:47 Drug: hydrALAZINE IVP 10 mg IVP once Route: IVP; Site: left forearm; lg3 04:21 Follow up: Response: No adverse reaction; Blood pressure is lowered 02:47 Drug: MethylPrednisoLONE IVP 125 mg IVP once Route: IVP; Site: left forearm; lg3 04:21 Follow up: Response: No adverse reaction 8 Medication: 04:20 VIS not applicable for this client. km8 Intake: 02:06 IV: 500ml; Total: 500ml. 8 04:22 IV: 500ml; Total: 1000ml. km8 04:38 IV: 150ml; Total: 1150ml. km8 Outcome: 03:01 ER care complete, transfer ordered by . kalli 04:36 Transferred by ground EMS to [facility], Transfer form km8 completed. 04:36 Condition: stable 04:36 Discharge instructions given to patient, Instructed on the need for transfer, Demonstrated understanding of instructions, 04:39 Patient left the ED. km8 Signatures: Dispatcher [employer] EDMS Anca Blackmon RN RN Kendrick Doran PA PA Karena Glynn kj1 Jessica Cantrell RN RN lg3 Luci Baker rv1 Lulú Lynn RN RN km8 Corrections: (The following items were deleted from the chart) 00:24 00:05 Patient maintains SpO2 saturation greater than 95% on room air. 02:47 02:45 BP 170 / 60; Pulse 109bpm; Resp 19bpm; Spontaneous; Pulse Ox 92% RA; lg3 lg3
[2023-05-09 05:06] VITALS: TEMP 100
[2023-05-09 05:09] VITALS: BP 160/65; O2SAT 91
--- NOTE | 2023-05-10 14:53 | RAD REPORT ---
EXAM DESCRIPTION: CT - Chest For Pe Angio - 05/09/2023 6:25 am CLINICAL HISTORY: 67 years, Male, Cough;SOB COMPARISON: None. TECHNIQUE: Multiple transaxial tomograms of the chest were obtained from the lung apices through the lung bases utilizing 2 mm slice thickness at 2 mm interval reconstruction after the administration o f 90/20 09/03 for complete opacification of the pulmonary arteries. Subsequent 3-D maximum intensity projection images were generated in the coronal and sagittal plane f or review. This exam was performed according to our departmental dose-optimization protocol, which includes auto mated exposure control, adjustment of the mA and/or kV according to patient size and/or use of iterat jenni reconstruction technique. FINDINGS: Some of the images are compromised by breathing motion artifact limiting diagnostic value. The lungs parenchyma demonstrate minimal centrilobular emphysematous changes of the upper lobes. Ther e is a patchy area of tree-in-bud nodularity/airspace opacity with minimal bronchial thickening invol ving anterior segment right upper lobe inferior aspect medially suspicious for mild-early bronchopneu monia. No masses,/or nodules are identified. The trachea mainstem bronchus demonstrate to be normal. There is no significant pericardial or pleura l effusions. The thoracic aorta demonstrate minimal intimal calcification. No evidence for aneurysm/or dissection. The heart is normal in size. There are no coronary artery calcifications. No evidence for right vent ricular strain. There is no significant mediastinal and/or hilar lymphadenopathy. The axillary regions demonstrate to be clear. Pulmonary arteries demonstrate to be normal, no intraluminal defect are seen that would suggest pulmo nary embolus. The bone windows demonstrate anterior spondylosis. The visualized portions of the upper abdomen demonstrate decreased attenuation of the liver correspon ding to fatty compression. Hypodense lesion with peripheral nodular enhancement subcapsular posterior right hepatic lobe measuring approximately 4.6 x 4.3 cm on image 17/174 are correspond most likely t o a hemangioma. Incidentally is noted presence of fat replacement of the paraspinal muscles of the up per abdomen IMPRESSION: No CT evidence for pulmonary embolism. Patchy area of tree-in-bud nodularity/airspace opacity with minimal bronchial thickening involving an terior segment right upper lobe inferior aspect medially suspicious for mild-early bronchopneumonia. Minimal centrilobular emphysematous changes of the upper lobes. Hypodense lesion with peripheral nodular enhancement subcapsular posterior right hepatic lobe measuri ng approximately 4.6 x 4.3 cm most likely to a hemangioma. Fatty infiltration of the liver. Electronically signed by: Guido Chau MD 05/09/2023 2:30 AM CDT Due to temporary technical issues with the PACS/Fluency reporting system, reports are being signed by the in house radiologists without review as a courtesy to insure prompt reporting. The interpreting radiologist is fully responsible for the content of the report.
--- NOTE | 2023-05-10 15:35 | RAD REPORT ---
EXAM DESCRIPTION: RAD - Chest Single View - 05/09/2023 1:12 am CLINICAL HISTORY: COUGH COMPARISON: None. FINDINGS: Single frontal radiograph view of the chest. Cardiomediastinal silhouette: Leads overlie the chest. Cardiomegaly. Lungs: Pulmonary vascular congestion. Possible interstitial opacities. Low lung volumes. Bones: Degenerative endplate spondylosis. Acromioclavicular joint spurring bilaterally with osteoarth ritic change of the shoulders. Upper abdomen: No abnormality identified. IMPRESSION: Cardiomegaly with pulmonary vascular congestion and possible interstitial edema. Electronically signed by: Primo Marshall 05/09/2023 1:38 AM CDT Due to temporary technical issues with the PACS/Fluency reporting system, reports are being signed by the in house radiologists without review as a courtesy to insure prompt reporting. The interpreting radiologist is fully responsible for the content of the report.
--- NOTE | 2023-05-11 07:56 | EKG ---
Test Date: 2023-05-09 Test Time: 00:17:09 Manufacturing Production Technician: DASHA MEASUREMENT RESULTS: Intervals: Rate: 111 CT: 156 QRSD: 98 QT: 374 QTc: 508 [place]: P: 72 CT: 156 QRS: 46 T: 76 INTERPRETIVE STATEMENTS: Sinus tachycardia Biatrial enlargement Left ventricular hypertrophy with repolarization abnormality Abnormal ECG Compared to ECG 03/29/2023 05:10:32 Sinus rhythm no longer present Atrial premature complex(es) no longer present Electronically Signed On 05-11-23 07:52:10 CDT by Guerrero Stanton
== END 2023-05-09 04:39 | disposition short-term general hospital (02) ==
LOC: ER 23:16
DX: J44.1 Chronic obstructive pulmonary disease with (acute) exacerbation (principal); J18.9 Pneumonia, unspecified organism; R09.02 Hypoxemia; I11.9 Hypertensive heart disease without heart failure; I10 Essential (primary) hypertension; Z11.52 Encounter for screening for COVID-19; Z72.0 Tobacco use
CPT/HCPCS: 96365; 96361; 93005; 87040 ×2; 85025; 81001; 36415; 85610; 82947; 83605; 85730; 80053; 87635; 87804 ×2; 71275; 71045; 94640; 96375; 99285; 96366; Q9967; J0360; J7613; J7644; J2930; J2405; J7040

== ENCOUNTER 2024-06-12 13:01 | Emergency (ER) | payer OTHER ==
--- OUTSIDE RECORDS SUMMARY | 2024-06-12 13:04 | XMS REPORT | Continuity of Care Document ---
Author Name Unknown Address [address] [facility] [address] [place] [address] [facility] Address [address] [facility] [place] [address] Care Team Providers [employer] Engineer Name Role Phone Lakhwinder Peter Attending Clinician Unavailable Jen Hernandez Attending Clinician Unavailable Sharmaine SOTELO Attending Clinician Unavailable GUU_SHENG_YAW Attending Clinician Unavailable GUU_SHENG_YAW Admitting Clinician Unavailable Payers Payer Name Policy Type Policy Number Effective Date Expirati on Date Source [facility] (MEDICARE REPLACEMENT HMO) [id number] 2020 00:00:00 Problems Condition Name Condition Details Condition Category Status Onset Date Resolution Date Last Treatment Date Treating Clinician Comments Source [id number] Type 2 diabetes mellitus with hyperglyce cory, without long-term current use of insulin Problem Common [facility] Chronic hepatitis C Chronic viral hepatitis C Problem Common [facility] [id number] Low back pain Problem [facility] [id number] Other chronic pain Problem [facility] Essential hypertensi on Essential (primary) hypertensi on Problem [facility] Chronic obstructiv e pulmonary disease Chronic obstructiv e bronchitis without exacerbati on Problem [facility] Malignant tumor of prostate CA of prostate Problem [facility] [id number] Chest pain, unspecifie d type Problem [facility] [id number] Primary insomnia Problem [facility] [id number] Controlled type 2 diabetes mellitus without complicati on, without long-term current use of insulin Problem [facility] [id number] Hyperlipid emia, mixed Problem [facility] [id number] Personal history of prostate cancer Problem [facility] [id number] Screening cholestero l level Problem [facility] [id number] Iron deficiency anemia, unspecifie d iron deficiency anemia type Problem [facility] [id number] Mild depression Problem [facility] [id number] Smokes with greater than 40 pack year history Problem [facility] [id number] Current moderate episode of major depressive disorder without prior episode Problem [facility] Social History Social Habit Start Date Stop Date Quantity Comments Source History of Tobacco Use Current Smoker [facility] Sex Assigned At [facility] Smoking Status Start Date Stop Date Source Current Smoker 2023-03-17 00:00:00 [facility] Medications Ordered Medication Name Filled Medication Name Start Date Stop Date Current Medication? Ordering Clinician Indication Dosage Frequency Signature (SIG) Comments Components Source Gabapentin Gabapentin 02-25 00:00: 00 Yes Na Sotelo 1 capsule [facility] Combivent Respimat Combivent Respimat Yes Na Sotelo 1 puff as needed [facility] Atorvastati n Calcium Atorvastati n Calcium Yes Na Sotelo 1 tablet Commo n [facility] Symbicort Symbicort Yes Na Sotelo 2 puffs [facility] Lancets Super Thin Lancets Super Thin Yes Na Sotelo one [facility] Alcohol Prep Pads Alcohol Prep Pads Yes Na Sotelo as directed [facility] Mirtazapine Mirtazapine Yes Na Sotelo 1 tablet at bedtime [facility] Amlodipine Besy-Benaze pril HCl Amlodipine Besy-Benaze pril HCl Yes Na Sotelo as directed [facility] Ferrous Sulfate Ferrous Sulfate Yes Na Sotelo 1 tablet [facility] Metformin HCl Metformin HCl Yes Na Sotelo 1 tablet with a meal [facility] blood glucose test strip blood glucose test strip Yes Na Sotelo one [facility] Mirtazapine Mirtazapine Yes Na Sotelo 1 tablet at bedtime [facility] Amlodipine Besy-Benaze pril HCl Amlodipine Besy-Benaze pril HCl Yes Na Sotelo as directed [facility] Albuterol Sulfate HFA Albuterol Sulfate HFA Yes Na Sotelo INHALE 2 PUFFS NEEDED EVERY 6 HOURS [facility] Mirtazapine Mirtazapine Yes Na Sotelo 1 tablet at bedtime [facility] amLODIPine Besy-Benaze pril HCl 2.5-10 MG amLODIPine Besy-Benaze pril HCl 2.5-10 MG No QD amLODIPine Besy-Benaz epril HCl 2.5-10 MG Symbicort 160-4.5 MCG/ACT Symbicort 160-4.5 MCG/ACT No 2{puffs } BID Symbicort 160-4.5 MCG/ACT Mirtazapine 30 Mirtazapine 30 No 1{table t_at_be dtime} QD Mirtazapin e 30 Gabapentin 300 MG Gabapentin 300 MG No Gabapentin 300 MG metFORMIN HCl 1000 MG metFORMIN HCl 1000 MG No 1{table t_with_ a_meal} QD metFORMIN HCl 1000 MG Albuterol Sulfate HFA 108 (90 Base) MCG/ACT Albuterol Sulfate HFA 108 (90 Base) MCG/ACT No 6xD Albuterol Sulfate HFA 108 (90 Base) MCG/ACT Atorvastati n Calcium 10 MG Atorvastati n Calcium 10 MG No 1{table t} QD Atorvastat in Calcium 10 MG Ferrous Sulfate 325 (65 Fe) MG Ferrous Sulfate 325 (65 Fe) MG No 1{table t} QD Ferrous Sulfate 325 (65 Fe) MG Mirtazapine 30 MG Mirtazapine 30 MG No 1{table t_at_be dtime} QD Mirtazapin e 30 MG Mirtazapine 15 Mirtazapine 15 No 1{table t_at_be dtime} QD Mirtazapin e 15 Combivent Respimat 20-100 MCG/ACT Combivent Respimat 20-100 MCG/ACT No Combivent Respimat 20-100 MCG/ACT amLODIPine Besy-Benaze pril HCl 2.5-10 MG amLODIPine Besy-Benaze pril HCl 2.5-10 MG No QD amLODIPine Besy-Benaz epril HCl 2.5-10 MG Symbicort 160-4.5 MCG/ACT Symbicort 160-4.5 MCG/ACT No 2{puffs } BID Symbicort 160-4.5 MCG/ACT Gabapentin 300 MG Gabapentin 300 MG No Gabapentin 300 MG metFORMIN HCl 1000 MG metFORMIN HCl 1000 MG No 1{table t_with_ a_meal} QD metFORMIN HCl 1000 MG Albuterol Sulfate HFA 108 (90 Base) MCG/ACT Albuterol Sulfate HFA 108 (90 Base) MCG/ACT No 6xD Albuterol Sulfate HFA 108 (90 Base) MCG/ACT Atorvastati n Calcium 10 MG Atorvastati n Calcium 10 MG No 1{table t} QD Atorvastat in Calcium 10 MG Ferrous Sulfate 325 (65 Fe) MG Ferrous Sulfate 325 (65 Fe) MG No 1{table t} QD Ferrous Sulfate 325 (65 Fe) MG Ferrous Sulfate 325 (65 Fe) MG Ferrous Sulfate 325 (65 Fe) MG No 1{table t} QD Ferrous Sulfate 325 (65 Fe) MG Albuterol Sulfate HFA 108 (90 Base) MCG/ACT Albuterol Sulfate HFA 108 (90 Base) MCG/ACT No 6xD Albuterol Sulfate HFA 108 (90 Base) MCG/ACT Atorvastati n Calcium 10 MG Atorvastati n Calcium 10 MG No 1{table t} QD Atorvastat in Calcium 10 MG Mirtazapine 15 Mirtazapine 15 No 1{table t_at_be dtime} QD Mirtazapin e 15 Gabapentin 300 MG Gabapentin 300 MG No Gabapentin 300 MG Combivent Respimat 20-100 MCG/ACT Combivent Respimat 20-100 MCG/ACT No Combivent Respimat 20-100 MCG/ACT Mirtazapine 30 MG Mirtazapine 30 MG No 1{table t_at_be dtime} QD Mirtazapin e 30 MG metFORMIN HCl 1000 MG metFORMIN HCl 1000 MG No 1{table t_with_ a_meal} QD metFORMIN HCl 1000 MG amLODIPine Besy-Benaze pril HCl 2.5-10 MG amLODIPine Besy-Benaze pril HCl 2.5-10 MG No amLODIPine Besy-Benaz epril HCl 2.5-10 MG Albuterol Sulfate HFA 108 (90 Base) MCG/ACT Albuterol Sulfate HFA 108 (90 Base) MCG/ACT No 6xD Albuterol Sulfate HFA 108 (90 Base) MCG/ACT Symbicort 160-4.5 MCG/ACT Symbicort 160-4.5 MCG/ACT No 2{puffs } BID Symbicort 160-4.5 MCG/ACT Ferrous Sulfate 325 (65 Fe) MG Ferrous Sulfate 325 (65 Fe) MG No 1{table t} QD Ferrous Sulfate 325 (65 Fe) MG Atorvastati n Calcium 10 MG Atorvastati n Calcium 10 MG No 1{table t} QD Atorvastat in Calcium 10 MG Mirtazapine 15 Mirtazapine 15 No 1{table t_at_be dtime} QD Mirtazapin e 15 Gabapentin 300 MG Gabapentin 300 MG No Gabapentin 300 MG Combivent Respimat 20-100 MCG/ACT Combivent Respimat 20-100 MCG/ACT No Combivent Respimat 20-100 MCG/ACT Mirtazapine 30 MG Mirtazapine 30 MG No 1{table t_at_be dtime} QD Mirtazapin e 30 MG metFORMIN HCl 1000 MG metFORMIN HCl 1000 MG No 1{table t_with_ a_meal} QD metFORMIN HCl 1000 MG amLODIPine Besy-Benaze pril HCl 2.5-10 MG amLODIPine Besy-Benaze pril HCl 2.5-10 MG No amLODIPine Besy-Benaz epril HCl 2.5-10 MG Albuterol Sulfate HFA 108 (90 Base) MCG/ACT Albuterol Sulfate HFA 108 (90 Base) MCG/ACT No 6xD Albuterol Sulfate HFA 108 (90 Base) MCG/ACT Symbicort 160-4.5 MCG/ACT Symbicort 160-4.5 MCG/ACT No 2{puffs } BID Symbicort 160-4.5 MCG/ACT Ferrous Sulfate 325 (65 Fe) MG Ferrous Sulfate 325 (65 Fe) MG No 1{table t} QD Ferrous Sulfate 325 (65 Fe) MG Budesonide- Formoterol Fumarate 160-4.5 MCG/ACT Budesonide- Formoterol Fumarate 160-4.5 MCG/ACT No Budesonide -Formotero l Fumarate 160-4.5 MCG/ACT Albuterol Sulfate HFA 108 (90 Base) MCG/ACT Albuterol Sulfate HFA 108 (90 Base) MCG/ACT No 6xD Albuterol Sulfate HFA 108 (90 Base) MCG/ACT Combivent Respimat 20-100 MCG/ACT Combivent Respimat 20-100 MCG/ACT No Combivent Respimat 20-100 MCG/ACT Mirtazapine 15 Mirtazapine 15 No 1{table t_at_be dtime} QD Mirtazapin e 15 Mirtazapine 30 MG Mirtazapine 30 MG No 1{table t_at_be dtime} QD Mirtazapin e 30 MG metFORMIN HCl 1000 MG metFORMIN HCl 1000 MG No 1{table t_with_ a_meal} QD metFORMIN HCl 1000 MG amLODIPine Besy-Benaze pril HCl 2.5-10 MG amLODIPine Besy-Benaze pril HCl 2.5-10 MG No amLODIPine Besy-Benaz epril HCl 2.5-10 MG Gabapentin 300 MG Gabapentin 300 MG No 1{capsu le} TID Gabapentin 300 MG Ferrous Sulfate 325 (65 Fe) MG Ferrous Sulfate 325 (65 Fe) MG No 1{table t} QD Ferrous Sulfate 325 (65 Fe) MG Atorvastati n Calcium 10 MG Atorvastati n Calcium 10 MG No 1{table t} QD Atorvastat in Calcium 10 MG Budesonide- Formoterol Fumarate 160-4.5 MCG/ACT Budesonide- Formoterol Fumarate 160-4.5 MCG/ACT No Budesonide -Formotero l Fumarate 160-4.5 MCG/ACT Albuterol Sulfate HFA 108 (90 Base) MCG/ACT Albuterol Sulfate HFA 108 (90 Base) MCG/ACT No 6xD Albuterol Sulfate HFA 108 (90 Base) MCG/ACT Combivent Respimat 20-100 MCG/ACT Combivent Respimat 20-100 MCG/ACT No Combivent Respimat 20-100 MCG/ACT Mirtazapine 15 Mirtazapine 15 No 1{table t_at_be dtime} QD Mirtazapin e 15 Mirtazapine 30 MG Mirtazapine 30 MG No 1{table t_at_be dtime} QD Mirtazapin e 30 MG metFORMIN HCl 1000 MG metFORMIN HCl 1000 MG No 1{table t_with_ a_meal} QD metFORMIN HCl 1000 MG amLODIPine Besy-Benaze pril HCl 2.5-10 MG amLODIPine Besy-Benaze pril HCl 2.5-10 MG No amLODIPine Besy-Benaz epril HCl 2.5-10 MG Gabapentin 300 MG Gabapentin 300 MG No 1{capsu le} TID Gabapentin 300 MG Ferrous Sulfate 325 (65 Fe) MG Ferrous Sulfate 325 (65 Fe) MG No 1{table t} QD Ferrous Sulfate 325 (65 Fe) MG Atorvastati n Calcium 10 MG Atorvastati n Calcium 10 MG No 1{table t} QD Atorvastat in Calcium 10 MG Mirtazapine 30 MG Mirtazapine 30 MG No 1{table t_at_be dtime} QD Mirtazapin e 30 MG Lancets Super Thin n/s Lancets Super Thin n/s No Lancets Super Thin n/s Combivent Respimat 20-100 MCG/ACT Combivent Respimat 20-100 MCG/ACT No Combivent Respimat 20-100 MCG/ACT Atorvastati n Calcium 10 MG Atorvastati n Calcium 10 MG No 1{table t} QD Atorvastat in Calcium 10 MG metFORMIN HCl 1000 MG metFORMIN HCl 1000 MG No 1{table t_with_ a_meal} QD metFORMIN HCl 1000 MG Ferrous Sulfate 325 (65 Fe) MG Ferrous Sulfate 325 (65 Fe) MG No 1{table t} QD Ferrous Sulfate 325 (65 Fe) MG Albuterol Sulfate HFA 108 (90 Base) MCG/ACT Albuterol Sulfate HFA 108 (90 Base) MCG/ACT No 6xD Albuterol Sulfate HFA 108 (90 Base) MCG/ACT Symbicort 160-4.5 MCG/ACT Symbicort 160-4.5 MCG/ACT No 2{puffs } BID Symbicort 160-4.5 MCG/ACT Budesonide- Formoterol Fumarate 160-4.5 MCG/ACT Budesonide- Formoterol Fumarate 160-4.5 MCG/ACT No Budesonide -Formotero l Fumarate 160-4.5 MCG/ACT amLODIPine Besy-Benaze pril HCl 2.5-10 MG amLODIPine Besy-Benaze pril HCl 2.5-10 MG No amLODIPine Besy-Benaz epril HCl 2.5-10 MG Gabapentin 300 MG Gabapentin 300 MG No Gabapentin 300 MG amLODIPine Besy-Benaze pril HCl 2.5-10 MG amLODIPine Besy-Benaze pril HCl 2.5-10 MG No amLODIPine Besy-Benaz epril HCl 2.5-10 MG Ferrous Sulfate 325 (65 Fe) MG Ferrous Sulfate 325 (65 Fe) MG No 1{table t} QD Ferrous Sulfate 325 (65 Fe) MG Combivent Respimat 20-100 MCG/ACT Combivent Respimat 20-100 MCG/ACT No Combivent Respimat 20-100 MCG/ACT Albuterol Sulfate HFA 108 (90 Base) MCG/ACT Albuterol Sulfate HFA 108 (90 Base) MCG/ACT No 6xD Albuterol Sulfate HFA 108 (90 Base) MCG/ACT blood glucose test strip n/s blood glucose test strip n/s No QD blood glucose test strip n/s Gabapentin 300 MG Gabapentin 300 MG No Gabapentin 300 MG metFORMIN HCl 1000 MG metFORMIN HCl 1000 MG No 1{table t_with_ a_meal} QD metFORMIN HCl 1000 MG Mirtazapine 30 MG Mirtazapine 30 MG No 1{table t_at_be dtime} QD Mirtazapin e 30 MG Symbicort 160-4.5 MCG/ACT Symbicort 160-4.5 MCG/ACT No 2{puffs } BID Symbicort 160-4.5 MCG/ACT Budesonide- Formoterol Fumarate 160-4.5 MCG/ACT Budesonide- Formoterol Fumarate 160-4.5 MCG/ACT No Budesonide -Formotero l Fumarate 160-4.5 MCG/ACT Atorvastati n Calcium 10 MG Atorvastati n Calcium 10 MG No 1{table t} QD Atorvastat in Calcium 10 MG amLODIPine Besy-Benaze pril HCl 2.5-10 MG amLODIPine Besy-Benaze pril HCl 2.5-10 MG No amLODIPine Besy-Benaz epril HCl 2.5-10 MG Ferrous Sulfate 325 (65 Fe) MG Ferrous Sulfate 325 (65 Fe) MG No 1{table t} QD Ferrous Sulfate 325 (65 Fe) MG Combivent Respimat 20-100 MCG/ACT Combivent Respimat 20-100 MCG/ACT No Combivent Respimat 20-100 MCG/ACT Albuterol Sulfate HFA 108 (90 Base) MCG/ACT Albuterol Sulfate HFA 108 (90 Base) MCG/ACT No 6xD Albuterol Sulfate HFA 108 (90 Base) MCG/ACT blood glucose test strip n/s blood glucose test strip n/s No QD blood glucose test strip n/s Gabapentin 300 MG Gabapentin 300 MG No Gabapentin 300 MG metFORMIN HCl 1000 MG metFORMIN HCl 1000 MG No 1{table t_with_ a_meal} QD metFORMIN HCl 1000 MG Mirtazapine 30 MG Mirtazapine 30 MG No 1{table t_at_be dtime} QD Mirtazapin e 30 MG Symbicort 160-4.5 MCG/ACT Symbicort 160-4.5 MCG/ACT No 2{puffs } BID Symbicort 160-4.5 MCG/ACT Budesonide- Formoterol Fumarate 160-4.5 MCG/ACT Budesonide- Formoterol Fumarate 160-4.5 MCG/ACT No Budesonide -Formotero l Fumarate 160-4.5 MCG/ACT Atorvastati n Calcium 10 MG Atorvastati n Calcium 10 MG No 1{table t} QD Atorvastat in Calcium 10 MG metFORMIN HCl 1000 MG metFORMIN HCl 1000 MG No 1{table t_with_ a_meal} QD metFORMIN HCl 1000 MG amLODIPine Besy-Benaze pril HCl 2.5-10 MG amLODIPine Besy-Benaze pril HCl 2.5-10 MG No QD amLODIPine Besy-Benaz epril HCl 2.5-10 MG Mirtazapine 15 Mirtazapine 15 No 1{table t_at_be dtime} QD Mirtazapin e 15 Combivent Respimat 20-100 MCG/ACT Combivent Respimat 20-100 MCG/ACT No Combivent Respimat 20-100 MCG/ACT Mirtazapine 30 MG Mirtazapine 30 MG No 1{table t_at_be dtime} QD Mirtazapin e 30 MG Ferrous Sulfate 325 (65 Fe) MG Ferrous Sulfate 325 (65 Fe) MG No 1{table t} QD Ferrous Sulfate 325 (65 Fe) MG Atorvastati n Calcium 10 MG Atorvastati n Calcium 10 MG No 1{table t} QD Atorvastat in Calcium 10 MG Albuterol Sulfate HFA 108 (90 Base) MCG/ACT Albuterol Sulfate HFA 108 (90 Base) MCG/ACT No 6xD Albuterol Sulfate HFA 108 (90 Base) MCG/ACT Gabapentin 300 MG Gabapentin 300 MG No Gabapentin 300 MG Albuterol Sulfate HFA 108 (90 Base) MCG/ACT Albuterol Sulfate HFA 108 (90 Base) MCG/ACT No 6xD Albuterol Sulfate HFA 108 (90 Base) MCG/ACT Ferrous Sulfate 325 (65 Fe) MG Ferrous Sulfate 325 (65 Fe) MG No 1{table t} QD Ferrous Sulfate 325 (65 Fe) MG Mirtazapine 30 MG Mirtazapine 30 MG No 1{table t_at_be dtime} QD Mirtazapin e 30 MG Combivent Respimat 20-100 MCG/ACT Combivent Respimat 20-100 MCG/ACT No QID Combivent Respimat 20-100 MCG/ACT Symbicort 160-4.5 MCG/ACT Symbicort 160-4.5 MCG/ACT 05-23 00:00 :00 No 2{puffs } BID Symbicort 160-4.5 MCG/ACT Vital Signs Vital Name Observation Time Observation Value Comments S ource height 2021-11-24 10:20:00 72.00 [in_i] Com mon [facility] weight 2021-11-24 10:20:00 219.8 [lb_av] Co mmon [facility] temperature 2021-11-24 10:20:00 97.3 [degF] Com mon [facility] bmi 2021-11-24 10:20:00 29.81 kg/m2 Comm on [facility] oximetry 2021-11-24 10:20:00 100 % Commo n [facility] respiratory rate 2021-11-24 10:20:00 18 /min Common [facility] blood pressure systolic 2021-11-24 10:20:00 150 mm[Hg] [facility] blood pressure diastolic 2021-11-24 10:20:00 82 mm[Hg] Common [facility] height 2021-09-23 08:20:00 72.00 [in_i] Com [facility] weight 2021-09-23 08:20:00 215.8 [lb_av] Co [facility] temperature 2021-09-23 08:20:00 97.0 [degF] Com [facility] bmi 2021-09-23 08:20:00 29.26 kg/m2 Comm on [facility] oximetry 2021-09-23 08:20:00 97 % Commo n [facility] respiratory rate 2021-09-23 08:20:00 18 /min [facility] blood pressure systolic 2021-09-23 08:20:00 138 mm[Hg] Common [facility] blood pressure diastolic 2021-09-23 08:20:00 80 mm[Hg] [facility] height 2021-09-23 07:40:00 72.00 [in_i] Com [facility] weight 2021-09-23 07:40:00 215.8 [lb_av] Co on [facility] temperature 2021-09-23 07:40:00 97.0 [degF] Com [facility] bmi 2021-09-23 07:40:00 29.26 kg/m2 Comm on [facility] oximetry 2021-09-23 07:40:00 97 % Commo n [facility] blood pressure systolic 2021-09-23 07:40:00 138 mm[Hg] [facility] diastolic 2021-09-23 07:40:00 80 mm[facility]Hg[facility] En[facility]ters Start Date/Time End Date/Time Encounter Type Admission Type Attending [facility] Care Facility Care Department Encounter ID Source 2022-11-30 09:20:00 Outpatient Lakhwinder Peter [facility]LMLC [facility] [id number] [facility] 2022-11-26 16:52:00 Outpatient Lakhwinder Peter [facility] [id number] [facility] 2022-08-24 09:39:00 Outpatient Jen Hernandez [facility] [id number] [facility] 2022-08-13 15:10:00 Outpatient SOTELO, Na STLMLC STLMLC [id number] [facility] 2022-04-13 16:07:00 Outpatient Sotelo, Na STLMLC ST[facility]C [id number] [facility] 2022-04-06 09:34:00 Outpatient Sotelo, Na STLMLC ST[facility]MLC [id number] [facility] 2022-02-18 10:50:00 Outpatient Sotelo, Na STLMLC STLMLC [id number] [facility] 2022-01-16 10:51:00 Outpatient Sotelo, Na STLMLC ST[facility]C [id number] [facility] 2022-01-07 08:26:01 Outpatient Sotelo, Na STLMLC ST[facility]C [id number] [facility] 2021-12-18 11:05:00 Outpatient Sotelo, Na STLMLC STL[facility]C [id number] [facility] 2021-11-20 11:02:00 Outpatient Sotelo, Na STLMLC STLMLC [id number] [facility] 2021-09-23 08:12:01 Outpatient Sotelo, Na STLMLC STLMLC [id number] [facility] 2021-09-19 09:03:01 Outpatient Sotelo, Na STLMLC STLMLC [id number] [facility] 2021-09-10 16:27:01 Outpatient Sotelo, Na STLMLC STLMLC [id number] [facility] 2021-08-15 13:30:01 Outpatient Sotelo, Na STLMLC STLMLC [id number] [facility] 2021-08-06 13:39:32 Outpatient Sotelo, Na STLMLC STLMLC [id number] [facility] 2021-08-06 13:38:05 Outpatient Sotelo, Na STLMLC STLMLC [id number] [facility] 2021-08-06 13:25:43 Outpatient Sotelo, Na STLMLC STLMLC [id number] [facility] 2021-08-06 11:56:05 Outpatient Sotelo, Na STLMLC STLMLC [id number] [facility] 2021-08-06 11:45:53 Outpatient Sotelo, Na STLMLC STLMLC [id number] [facility] 2021-08-06 11:35:09 Outpatient Sotelo, Na STLMLC STLMLC [id number] [facility] 2021-08-06 11:31:41 Outpatient Sotelo, Na STLMLC STLMLC [id number] [facility] 2021-08-06 11:19:52 Outpatient Sotelo, Na STLMLC STLMLC [id number] [facility] 2021-08-06 11:16:52 Outpatient Sotelo, Na STLMLC STLMLC [id number] [facility] 2021-08-06 11:14:34 Outpatient Sharmaine Sotelo STLMLC STLMLC [id number] [facility] 2023-03-30 00:00:00 2023-03-30 00:00:00 (TEL) STLMLC STLMLC [id number] [facility] 2022-08-24 00:00:00 2022-08-24 00:00:00 (TEL) STLMLC STLMLC [id number] [facility] 2022-07-30 00:00:00 2022-07-30 00:00:00 (TEL) STLMLC STLMLC [id number] [facility] 2022-07-27 00:00:00 2022-07-27 00:00:00 (TEL) STLMLC STLMLC [id number] [facility] 2022-04-24 00:00:00 2022-04-24 00:00:00 (TEL) STLMLC STLMLC [id number] [facility] 2022-04-15 00:00:00 2022-04-15 00:00:00 OL DIG E/M SVC 21+ MIN STLMLC STLMLC [id number] [facility] 2022-04-03 00:00:00 2022-04-03 00:00:00 (TEL) STLMLC STLMLC [id number] [facility] 2022-03-24 00:00:00 2022-03-24 00:00:00 (TEL) STLMLC STLMLC [id number] [facility] 2021-11-24 00:00:00 2021-11-24 00:00:00 OFFICE VISIT EST PT LEVEL 3 STLMLC ST[facility] [id number] [facility] 2021-09-23 00:00:00 2021-09-23 00:00:00 OFFICE VISIT EST PT LEVEL 3 [facility]LMLC ST[facility]C [id number] [facility] 2021-09-23 00:00:00 2021-09-23 00:00:00 SUB ANNUAL [facility] VIS[facility] STL[facility] ST[facility] [id number] [facility] 2021-08-12 00:00:00 2021-08-12 00:00:00 (TEL) STLMLC STLMLC [id number] [facility] 2021-02-27 00:00:00 2021-02-27 00:00:00 Outpatient STLMLC ST[facility] [id number] [facility] 2020-12-26 00:00:00 2020-12-26 00:00:00 Outpatient STLMLC ST[facility] [id number] [facility] 2020-11-29 00:00:00 2020-11-29 00:00:00 Outpatient STLMLC ST[facility]C [id number] [facility] 2020-10-26 06:01:00 2020-10-26 06:01:00 Outpatient DMG DMG [id number] [facility] 2020-10-21 08:00:00 2020-10-21 08:00:00 Outpatient DMG DMG [id number] [facility] 2020-07-03 00:00:00 2020-07-03 00:00:00 Outpatient STLMLC ST[facility] [id number] [facility] 2020-02-26 16:13:00 2020-02-26 16:13:00 [facility] [id number] [facility] 2020-02-26 13:40:00 2020-02-26 13:40:00 [facility] [id number] [facility] 2020-01-16 13:06:00 2020-01-16 13:06:00 [facility] [id number] [facility] 2019-11-29 04:27:00 2019-11-29 04:27:00 Outpatient GUU_SHENG_Y AW [facility] [id number] [facility] 2019-11-28 01:05:00 2019-11-28 01:05:00 Outpatient GUU_SHENG_Y AW [facility] [id number] [facility] 2019-11-27 12:04:00 2019-11-27 12:04:00 [facility] [id number] [facility] 2019-11-24 11:38:00 2019-11-24 11:38:00 Outpatient GUU_SHENG_Y AW [facility] [id number] [facility] 2019-11-24 11:38:00 2019-11-24 11:38:00 Outpatient GUU_SHENG_Y AW [facility] [id number] [facility] 2019-11-23 11:10:00 2019-11-23 11:10:00 Outpatient GUU_SHENG_Y AW [facility] [id number] [facility] 2019-11-20 16:57:00 2019-11-20 16:57:00 [facility] [id number] [facility] 2019-09-15 16:25:00 2019-09-15 16:25:00 [facility] [id number] [facility] 2019-09-07 10:40:00 2019-09-07 10:40:00 [facility] [id number] [facility] 2019-08-25 11:31:00 2019-08-25 11:31:00 [facility] [id number] [facility] 2019-02-07 09:23:00 2019-02-07 09:23:00 [facility] [address] [facility] [place] [facility] [id number] [facility] 2019-01-19 16:41:00 2019-01-19 16:41:00 [facility] [id number] [facility] 2019-01-10 14:20:00 2019-01-10 14:20:00 [facility] [id number] [facility] 2018-12-29 11:04:00 2018-12-29 11:04:00 [facility] [id number] [facility] 2018-08-25 09:30:00 2018-08-25 09:30:00 [facility] [facility] [id number] [facility] 2018-07-07 14:56:00 2018-07-07 14:56:00 [facility] [facility] [id number] [facility] 2018-06-22 08:45:00 2018-06-22 08:45:00 [facility] [facility] [id number] [facility] 2018-03-23 08:26:00 2018-03-23 08:26:00 [facility] [place] [facility] [id number] [facility] 2018-03-22 08:13:00 2018-03-22 08:13:00 [facility] [facility] [id number] [facility] 2018-03-21 09:30:00 2018-03-21 09:30:00 [facility] [facility] [id number] [facility] 2017-12-28 10:38:00 2017-12-28 10:38:00 [facility] [facility] [id number] [facility] 2017-11-29 11:00:00 2017-11-29 11:00:00 [facility] [place] [facility] [id number] [facility]
[2024-06-12] MEDS ORDERED: IBUPROFEN 400 MG TAB ONE (14:07)
[2024-06-12] MEDS ORDERED: CYCLOBENZAPRINE 10 MG TAB ONE (14:08)
--- NOTE | 2024-06-12 16:05 | ER ---
Nurse's Notes [facility] Name: Guido Allan Age: 68 yrs Sex: Male : 1955 Arrival Date: 06/12/2024 Time: 13:01 Bed 11 Private MD: Diagnosis: Low back pain Presentation: 06/12 13:35 Chief complaint: Patient states: right low back pain and right hand numbness "for a aa5 long while now". Pt denies known injury. Coronavirus screen: At this time, the client does not indicate any symptoms associated with coronavirus-19. Ebola Screen: Patient denies travel to an Ebola-affected area in the 21 days before illness onset. Initial Sepsis Screen: Does the patient meet any 2 criteria? No. Patient's initial sepsis screen is negative. Does the patient have a suspected source of infection? No. Patient's initial sepsis screen is negative. Risk Assessment: Do you want to hurt yourself or someone else? Patient reports no desire to harm self or others. Onset of symptoms was 2023. 13:35 Acuity: ALANA 3 aa5 13:35 Method Of Arrival: Ambulatory aa5 Historical: - Allergies: 13:37 NKDA; aa5 - PMHx: 13:37 Arthritis; COPD; Hyperlipidemia; Hypertension; Prostate Cancer; aa5 - Immunization history:: Adult Immunizations unknown. - Infectious Disease History:: Denies. - Social history:: Smoking status: Patient reports the use of cigarette tobacco products. Assessment: 16:36 Reassessment: Patient appears in no apparent distress at this time. Patient and/or iw family updated on plan of care and expected duration. Pain level reassessed. Patient is alert, oriented x 3, equal unlabored respirations, skin warm/dry/pink. Vital Signs: 13:35 BP 140 / 69; Pulse 86; Resp 16 S; Temp 97.5(TE); Pulse Ox 100% on R/A; aa5 ED Course: 13:05 Patient arrived in ED. ra3 13:16 Dario Sánchez DO is Attending Physician. ms3 13:35 Arm band placed on. aa5 13:36 Triage completed. aa5 15:57 Anca Blackmon RN is Primary Nurse. iw Administered Medications: 14:12 Drug: Ibuprofen PO 600 mg PO once Route: PO; aa5 15:00 Follow up: Response: No adverse reaction iw 14:12 Drug: Cyclobenzaprine PO 10 mg PO once Route: PO; aa5 14:30 Follow up: Response: No adverse reaction iw 16:35 Drug: HYDROcodone-acetaminophen PO 5 mg-325 mg 1 tabs PO once Route: PO; iw 17:00 Follow up: Response: No adverse reaction iw Outcome: 16:04 Discharge ordered by ms3 16:50 Patient left the ED. iw Signatures: Anca Blackmon RN RN iw Ligia Acosta RN RN aa5 Dario Sánchez DO DO ms3 Estrella Albert ra3
--- NOTE | 2024-06-12 16:05 | EDPHYS ---
Physician Documentation [facility] Name: Guido Allan Age: 68 yrs Sex: Male : 1955 Arrival Date: 06/12/2024 Time: 13:01 Bed 11 Private MD: ED Physician Dario Sánchez HPI: 06/12 13:56 This 68 yrs old Black Male presents to ER via Ambulatory with complaints of Numbness Of ms3 Hand - Right, Back Pain. 13:56 Guido Allan presents to the Emergency Department with complaints of back pain that has ms3 persisted for about eight months. He also reports experiencing right hand pain for the same duration. He states that no medications have been taken, and there are no specific factors that have made the symptoms better or worse. The patient reports not having issues with mobility or involuntary urination or defecation.. Historical: - Allergies: 13:37 NKDA; aa5 - PMHx: 13:37 Arthritis; COPD; Hyperlipidemia; Hypertension; Prostate Cancer; aa5 - Immunization history:: Adult Immunizations unknown. - Infectious Disease History:: Denies. - Social history:: Smoking status: Patient reports the use of cigarette tobacco products. ROS: 13:56 Constitutional: Negative for fever, and chills. Cardiovascular: Negative for chest ms3 pain, and palpitations. Respiratory: Negative for shortness of breath, cough, wheezing, and pleuritic chest pain, Abdomen/GI: Negative for abdominal pain, nausea, vomiting, diarrhea, and constipation, 22:18 Back: Positive for Pain, ms3 Exam: 13:58 Head/Face: Normocephalic, atraumatic. Eyes: Pupils equal round and reactive to light, ms3 extra-ocular motions intact. Lids and lashes normal. Conjunctiva and sclera are non-icteric and not injected. Periorbital areas with no swelling, redness, or edema. Neck: Trachea midline, no cervical lymphadenopathy. Supple, full range of motion without nuchal rigidity, or vertebral point tenderness. No Meningismus. Cardiovascular: Regular rate and rhythm with a normal S1 and S2. No gallops, murmurs, or rubs. Normal PMI, no JVD. No pulse deficits. Respiratory: Lungs have equal breath sounds bilaterally, clear to auscultation and percussion. No rales, rhonchi or wheezes noted. No increased work of breathing, no retractions or nasal flaring. Abdomen/GI: Soft, non-tender, with normal bowel sounds. No distension or tympany. No guarding or rebound. No evidence of tenderness throughout. Skin: Warm, dry with normal turgor. Normal color with no rashes, no lesions, and no evidence of cellulitis. 13:58 Back: pain, that is mild, of the right low back, CVA tenderness, is absent, vertebral ms3 tenderness, is not appreciated, Vital Signs: 13:35 BP 140 / 69; Pulse 86; Resp 16 S; Temp 97.5(TE); Pulse Ox 100% on R/A; aa5 MDM: 13:56 Medical Screening Exam initiated ms3 15:54 ED course: Patient ambulatory in the ED to the restroom. States he is still having ms3 pain. Will give patient [place]. 21:51 Differential diagnosis: muscle spasm vs DDD vs Sciatica. Data reviewed: vital signs, ms3 nurses notes, and as a result, I will discharge patient. I considered the following discharge prescriptions or medication management in the emergency department Medications were administered in the Emergency Department. See MAR. Counseling: I had a detailed discussion with the patient and/or guardian regarding the historical points, exam findings, and any diagnostic results supporting the discharge/admit diagnosis, the need for outpatient follow up, to return to the emergency department if symptoms worsen or persist or if there are any questions or concerns that arise at home. Special discussion: I discussed with the patient/guardian in detail that at this point there is no indication for admission to the hospital. It is understood, however, that if the symptoms persist or worsen the patient needs to return immediately for re-evaluation. ED course: On re-evaluation patient symptoms improved, patient is a/ox 4, in nad, non-toxic appearing, ambulatory in ED. Patient to follow up with PMD in 2-3 days. Patient given Rx for Ibuprofen and Flexeril. Patient understands/ agrees with plan. Return precautions discussed to include worsening symptoms, or any other concerns.. Administered Medications: 14:12 Drug: Ibuprofen PO 600 mg PO once Route: PO; aa5 15:00 Follow up: Response: No adverse reaction iw 14:12 Drug: Cyclobenzaprine PO 10 mg PO once Route: PO; aa5 14:30 Follow up: Response: No adverse reaction iw 16:35 Drug: HYDROcodone-acetaminophen PO 5 mg-325 mg 1 tabs PO once Route: PO; iw 17:00 Follow up: Response: No adverse reaction iw Disposition Summary: 06/12/24 16:04 Discharge Ordered Notes: Location: Home ms3 Condition: Stable ms3 Diagnosis - Low back pain ms3 Discharge Instructions: - Discharge Summary Sheet ms3 - Acute Back Pain, Adult ms3 Forms: - Medication Reconciliation Form ms3 - Antibiotic Education ms3 - Prescription Opioid Use ms3 - Patient Portal Instructions ms3 - Leadership Thank You Letter ms3 Prescriptions: - Ibuprofen 600 mg Oral Tablet - take 1 tablet ORAL route every 6 hours As needed take with food; 30 tablet; ms3 Refills: 0, Product Selection Permitted - Cyclobenzaprine 10 mg Oral Tablet - take 1 tablet ORAL route every 8 hours As needed; 30 tablet; Refills: 0, ms3 Product Selection Permitted Signatures: Anca Balckmon RN RN iw Ligia Acosta RN RN aa5 Dario Sánchez DO DO ms3 Corrections: (The following items were deleted from the chart) 22:19 13:56 Miguelina Foley is a 77-year-old female with a past medical history of diabetes and ms3 hypertension. She presented to the Emergency Department with an acute onset of mumbling, and slumping over while returning from a vascular surgeon's office visit in [place]. These symptoms started approximately one hour ago. She has not experienced any vomiting. Her family member, her younger brother, reports that she is normally coherent, able to talk, and walk with a walker. However, today she demonstrated reduced responsiveness and abnormal movements. It is noted that she has had recent issues with her blood sugar management, including a reading over 600 one night. . ms3 22:19 13:56 Cardiovascular: Negative for chest pain, and palpitations. Respiratory: Negative ms3 for shortness of breath, cough, wheezing, and pleuritic chest pain, Abdomen/GI: Negative for abdominal pain, nausea, vomiting, diarrhea, and constipation, ms3 22:19 13:56 Neuro: Positive for altered mental status, Abnormal movements, ms3 ms3 22:20 13:58 Head/Face: Normocephalic, atraumatic. Eyes: Pupils equal round and reactive to ms3 light, extra-ocular motions intact. Lids and lashes normal. Conjunctiva and sclera are non-icteric and not injected. Periorbital areas with no swelling, redness, or edema. Neck: Trachea midline, no cervical lymphadenopathy. Supple, full range of motion without nuchal rigidity, or vertebral point tenderness. No Meningismus. Cardiovascular: Regular rate and rhythm with a normal S1 and S2. No gallops, murmurs, or rubs. Normal PMI, no JVD. No pulse deficits. Respiratory: Lungs have equal breath sounds bilaterally, clear to auscultation and percussion. No rales, rhonchi or wheezes noted. No increased work of breathing, no retractions or nasal flaring. Abdomen/GI: Soft, non-tender, with normal bowel sounds. No distension or tympany. No guarding or rebound. No evidence of tenderness throughout. Skin: Warm, dry with normal turgor. Normal color with no rashes, no lesions, and no evidence of cellulitis. ms3 22:20 13:58 Neuro: Sensation: no obvious gross deficits, Gait: unable to assess, Abnormal ms3 movements: occasional jerking of upper and lower ext. ms3 22:20 13:58 GCS: 12, ms3 ms3
[2024-06-12] MEDS ORDERED: HYDROCODONE/APAP 5/325 MG TAB ONE (16:29)
[2024-06-12 17:28] VITALS: BP 140/69; TEMP 97.5; O2SAT 100
== END 2024-06-12 16:50 | disposition home or self-care (01) ==
LOC: ER 13:01
DX: M54.50 Low back pain, unspecified (principal)
CPT/HCPCS: 99282